=== PATIENT | female | born 1935 | race Caucasian/White ===

== ENCOUNTER 2017-06-06 09:32 | Emergency (ER) | payer MEDICARE, OTHER ==
[~2017-06-06] VITALS: Ht 157.5 cm; Wt 68.0 kg
[~2017-06-06 09:32] MED LIST: AMLO5 PO; ASPI-516 PO; ASPI81TA23 PO; CELE20TA PO; CITA20TA4 PO; COLA100C3 PO; COZA50TA PO; DIVA250ER PO; DIVA250T PO; DIVA500T PO; HYDR-3516 PO; LIPI10TA PO; LOSA50TA PO; MEMA28CA PO; METO-309 PO; METO25TA3 PO; MILKSUS PO; PANT20 PO; QUET1TAB9 PO; RISP1TAB54 PO; ROSU1TAB4 PO; TAMO10TA6 PO; TAMO20TA6 PO; TRAZ100T4 PO; TRAZ50TA12 PO; VITATAB56 PO
[2017-06-06 09:34] VITALS: BP 137/75; PULSE 54; RESP 20; TEMP 98.9; O2SAT 96
--- NOTE | 2017-06-06 10:05 | PD ---
HPI Chief Complaint: Medication Refill Request Time Seen by Provider: 09:48 Travel History International Travel<30 days: No Contact w/Intl Traveler<30days: No Traveled to known affect area: No History of Present Illness HPI 82-year-old female presents to emergency department accompanied by her son Requesting refills on Ativan, Seroquel, Depakote, tamoxifen, Celexa, Risperdal. She History of dementia, psychosis, anxiety, bipolar disorder, hypertension, HLD , GERD, breast cancer, frequent Yousif act. He says he has enough medications to get her through the end of the month. She currently has Medicaid insurance that ends June 10 and insurance that starts on June 11. She came from an [facility] on May 14 to live with him. She does not have an established primary care provider in this area. He is concerned that her medications are going to run out before they get established. There are no current emergency medical complaints. No known allergies. Complaints are mild in severity. No known relieving or aggravating factors. No other modifying factors or associated signs and symptoms. PFSH Past Medical History Blood Disorders: No Bipolar Disorder: Yes Anxiety: No Depression: Yes (bi-polar and schizoaffective disorders) Heart Rhythm Problems: No High Cholesterol: No Chest Pain: No Congestive Heart Failure: No Diminished Hearing: No Endocrine: No Gastrointestinal Disorders: Yes (GERD) GERD: Yes Genitourinary: No Hiatal Hernia: No Hypertension: Yes Immune Disorder: No Musculoskeletal: No Neurologic: Yes (dementia) Psychiatric: Yes (per son pt has been seeing a psychiatrist for many years) Reproductive: No Respiratory: No Schizophrenia: Yes Ulcer: No ?: Not Menopausal: Yes : 1 Para: 1 Miscarriage: 0 : 0 Past Surgical History Abdominal Surgery: Yes Cardiac Surgery: No Ear Surgery: No Endocrine Surgery: No Eye Surgery: No Genitourinary Surgery: No Gynecologic Surgery: No Mastectomy: Yes (LUMPECTOMY) Oral Surgery: No Thoracic Surgery: No Other Surgery: Yes (lumpectomy) Social History Alcohol Use: No Tobacco Use: No Substance Use: No Allergies-Medications (Allergen,Severity, Reaction): Coded Allergies: No Known Allergies (Unverified Adverse Reaction, Unknown, 06/06/17) Per information received from son and received from [facility], Psychiatry. Reported Meds & Prescriptions Reported Meds & Active Scripts Active Trazodone (Trazodone HCl) 100 Mg Tab 100 Mg PO HS Tamoxifen (Tamoxifen Citrate) 10 Mg Tab 20 Mg PO 2 DAILY Risperdal M-Tab (Risperidone) 1 Mg Tab 1 Mg PO DAILY@,16 Quetiapine (Quetiapine Fumarate) 200 Mg Tab 200 Mg PO HS Protonix (Pantoprazole Sodium) 20 Mg Tab 20 Mg PO DAILY Lopressor (Metoprolol Tartrate) 50 Mg Tab 50 Mg PO BID Cozaar (Losartan Potassium) 50 Mg Tab 50 Mg PO DAILY Depakote ER (Divalproex Sodium) 250 Mg Tennille 250 Mg PO HS Divalproex DR (Divalproex Sodium) 500 Mg Tabdr 500 Mg PO BID Celexa (Citalopram Hydrobromide) 20 Mg Tab 20 Mg PO DAILY Lipitor (Atorvastatin Calcium) 10 Mg Tab 10 Mg PO DAILY Aspirin EC (Aspirin) 81 Mg Tabdr 81 Mg PO DAILY Norvasc (Amlodipine Besylate) 5 Mg Tab 5 Mg PO BID Reported Trazodone (Trazodone HCl) 100 Mg Tab 100 Mg PO HS Losartan (Losartan Potassium) 50 Mg Tab 50 Mg PO DAILY Vitamin D-400 (Cholecalciferol) 400 Unit Tab 400 Units PO DAILY Metoprolol Tartrate 25 Mg Tab 25 Mg PO BID Trazodone (Trazodone HCl) 50 Mg Tab 50 Mg PO HS Divalproex DR (Divalproex Sodium) 250 Mg Tabdr 250 Mg PO BID Citalopram (Citalopram Hydrobromide) 20 Mg Tab 20 Mg PO DAILY Trazodone (Trazodone HCl) 100 Mg Tab 100 Mg PO HS Hydrocodone-Acetaminophen 5-325 mg Tab 1 Tab PO Q6H PRN Namenda Xr (Memantine) 28 Mg Caper 28 Mg PO HS Tamoxifen (Tamoxifen Citrate) 20 Mg Tab 20 Mg PO DAILY Rosuvastatin (Rosuvastatin Calcium) 5 Mg Tab 5 Mg PO DAILY Milk of Magnesia Liq (Magnesium Hydroxide) 400 Mg/5 Ml Susp 30 Ml PO DAILY PRN Colace (Docusate Sodium) 100 Mg Cap 100 Mg PO DAILY Aspirin 81 Mg Chew 81 Mg PO DAILY Protonix (Pantoprazole Sodium) 20 Mg Tab 20 Mg PO DAILY Review of Systems Except as stated in HPI: all other systems reviewed are Neg Physical Exam Narrative GENERAL: Well-nourished, well-developed female patient, in no acute distress SKIN: Warm and dry. HEAD: Atraumatic. Normocephalic. EYES: Pupils equal and round. No scleral icterus. No injection or drainage. ENT: Mucosa pink and moist. Airway patent. NECK: Trachea midline. CARDIOVASCULAR: Regular rate. RESPIRATORY: No accessory muscle use. GASTROINTESTINAL: Obese. MUSCULOSKELETAL: No obvious deformities. No clubbing. No cyanosis. No edema. NEUROLOGICAL: Awake and alert. Oriented 3. No obvious cranial nerve deficits. Motor grossly within normal limits. Normal speech. PSYCHIATRIC: Appropriate mood and affect; insight and judgment normal. Data Data Last Documented VS Vital Signs Date Time Temp Pulse Resp B/P (MAP) Pulse Ox O2 Delivery O2 Flow Rate FiO2 06/06/17 10:21 06/06/17 09:34 98.9 54 20 96 Room Air Orders Orders Ed Discharge Order (06/06/17 10:12) MDM Medical Decision Making Medical Screen Exam Complete: Yes Emergency Medical Condition: Yes Medical Record Reviewed: Yes ( ) Differential Diagnosis Medication refill, medical clearance, dementia, bipolar disorder Narrative Course 82-year-old female presents with her son requesting medication refills on psychotropic medications. Patient currently still has medications for the next few days. I offered for the patient to be seen by psychiatry and the son declined. I called [facility] and they stated they patient could be seen tomorrow, but they only have same day appointments and the son needs to call tomorrow at 8 AM to make an appointment. [facility] information sheet was provided to the sun and was told to call tomorrow morning at 8 AM for an appointment. Instructed patient to follow up with primary care provider. Patient verbalizes understanding and agreement with treatment plan. Patient is medically cleared and stable for discharge. Discussed reasons to return to the emergency department. Patient agrees with treatment plan. The patients vital signs are stable and the patient is stable for outpatient follow-up and treatment. Patient discharged home, stable and in no acute distress. Diagnosis Primary Impression: Medication refill Referrals: Primary Care Physician Psychiatrist Patient Instructions: General Instructions, Medication Refill, ED Additional Instructions: Follow-up with [facility]; call at 8am 06/07/2017 to schedule an appointment Follow-up with Primary Care Follow-up with Psychiatry Return to the Emergency Department with worsening of symptoms Med/Other Pt SpecificInfo: No Change to Meds, No Meds Exist/No RX given Disposition: 01 DISCHARGE HOME Condition: Stable Damari Gavin Jun 06, 2017 10:05
== END 2017-06-06 10:22 | disposition home or self-care (01) ==
LOC: NEPD 09:32
DX: F31.9 Bipolar disorder, unspecified (principal); F20.9 Schizophrenia, unspecified; F03.90 Unspecified dementia, unspecified severity, without behavioral disturbance, psychotic disturbance, mood disturbance, and anxiety; K21.9 Gastro-esophageal reflux disease without esophagitis; I10 Essential (primary) hypertension; E78.5 Hyperlipidemia, unspecified; Z76.0 Encounter for issue of repeat prescription
CPT/HCPCS: 99281

== ENCOUNTER 2017-06-07 10:21 | Inpatient (IN) | payer MEDICARE, OTHER ==
[~2017-06-07] VITALS: Ht 154.9 cm; Wt 75.4 kg
--- NOTE | 2017-06-07 10:41 | PD ---
HPI Chief Complaint: Psychiatric Symptoms Time Seen by Provider: 10:30 Travel History International Travel<30 days: No Contact w/Intl Traveler<30days: No Traveled to known affect area: No History of Present Illness HPI 82-year-old female presents from [facility] under Yousif act. According to law enforcement report the patient has "Alzheimer's, bipolar. Has supervised residential care because she is unable to do it herself. Told career developer she would harm herself if the supervisor receiving and processing did not take her to see her son." Her son has power of traffic law attorney. I saw this patient yesterday who was brought in by her son for medication refills on Ativan, Seroquel, Depakote, tamoxifen, Celexa, Risperdal. The patient has history of dementia, psychosis, anxiety, bipolar disorder. Patient is concerned that her , who is , is going to take her son to [place]. She denies making a statement that she wanted to harm herself. when asked if she has any medical complaints she says she "feels good." She is tearful and crying and continuing to say she wants her son. Duration of symptoms a few hours. No known relieving or aggravating factors. Does not have an established primary care provider. No known allergies. No other Modifying factors or associated signs and symptoms. PFSH Past Medical History Blood Disorders: No Bipolar Disorder: Yes Anxiety: No Depression: Yes (bi-polar and schizoaffective disorders) Heart Rhythm Problems: No High Cholesterol: Yes Chest Pain: No Congestive Heart Failure: No Dementia: Yes Diminished Hearing: No Endocrine: No Gastrointestinal Disorders: Yes (GERD) GERD: Yes Genitourinary: No Hiatal Hernia: No Hypertension: Yes Immune Disorder: No Musculoskeletal: No Neurologic: Yes Psychiatric: Yes (per son pt has been seeing a psychiatrist for many years) Reproductive: No Respiratory: No Immunizations Current: No Schizophrenia: Yes Ulcer: No Menopausal: Yes : 1 Para: 1 Miscarriage: 0 : 0 Past Surgical History Abdominal Surgery: Yes Cardiac Surgery: No Ear Surgery: No Endocrine Surgery: No Eye Surgery: No Genitourinary Surgery: No Gynecologic Surgery: No Mastectomy: Yes (LUMPECTOMY) Oral Surgery: No Thoracic Surgery: No Other Surgery: Yes (lumpectomy) Social History Alcohol Use: No Tobacco Use: No Substance Use: No Allergies-Medications (Allergen,Severity, Reaction): Coded Allergies: No Known Allergies (Unverified Adverse Reaction, Unknown, 06/06/17) Per information received from son and received from [facility], Psychiatry. Reported Meds & Prescriptions Reported Meds & Active Scripts Active Trazodone (Trazodone HCl) 100 Mg Tab 100 Mg PO HS Tamoxifen (Tamoxifen Citrate) 10 Mg Tab 20 Mg PO 2 DAILY Risperdal M-Tab (Risperidone) 1 Mg Tab 1 Mg PO DAILY@, Quetiapine (Quetiapine Fumarate) 200 Mg Tab 200 Mg PO HS Protonix (Pantoprazole Sodium) 20 Mg Tab 20 Mg PO DAILY Lopressor (Metoprolol Tartrate) 50 Mg Tab 50 Mg PO BID Cozaar (Losartan Potassium) 50 Mg Tab 50 Mg PO DAILY Depakote ER (Divalproex Sodium) 250 Mg Tennille 250 Mg PO HS Divalproex DR (Divalproex Sodium) 500 Mg Tabdr 500 Mg PO BID Celexa (Citalopram Hydrobromide) 20 Mg Tab 20 Mg PO DAILY Lipitor (Atorvastatin Calcium) 10 Mg Tab 10 Mg PO DAILY Aspirin EC (Aspirin) 81 Mg Tabdr 81 Mg PO DAILY Norvasc (Amlodipine Besylate) 5 Mg Tab 5 Mg PO BID Reported Trazodone (Trazodone HCl) 100 Mg Tab 100 Mg PO HS Losartan (Losartan Potassium) 50 Mg Tab 50 Mg PO DAILY Vitamin D-400 (Cholecalciferol) 400 Unit Tab 400 Units PO DAILY Metoprolol Tartrate 25 Mg Tab 25 Mg PO BID Trazodone (Trazodone HCl) 50 Mg Tab 50 Mg PO HS Divalproex DR (Divalproex Sodium) 250 Mg Tabdr 250 Mg PO BID Citalopram (Citalopram Hydrobromide) 20 Mg Tab 20 Mg PO DAILY Trazodone (Trazodone HCl) 100 Mg Tab 100 Mg PO HS Hydrocodone-Acetaminophen 5-325 mg Tab 1 Tab PO Q6H PRN Namenda Xr (Memantine) 28 Mg Caper 28 Mg PO HS Tamoxifen (Tamoxifen Citrate) 20 Mg Tab 20 Mg PO DAILY Rosuvastatin (Rosuvastatin Calcium) 5 Mg Tab 5 Mg PO DAILY Milk of Magnesia Liq (Magnesium Hydroxide) 400 Mg/5 Ml Susp 30 Ml PO DAILY PRN Colace (Docusate Sodium) 100 Mg Cap 100 Mg PO DAILY Aspirin 81 Mg Chew 81 Mg PO DAILY Protonix (Pantoprazole Sodium) 20 Mg Tab 20 Mg PO DAILY Review of Systems Except as stated in HPI: all other systems reviewed are Neg Physical Exam Narrative GENERAL: Well-nourished, well-developed female patient, in no acute distress; tearful and crying SKIN: Warm and dry. HEAD: Atraumatic. Normocephalic. EYES: Pupils equal and round. ENT: Mucosa pink and moist. NECK: Supple. Trachea midline. CARDIOVASCULAR: Regular rate and rhythm. No murmur appreciated. RESPIRATORY: No accessory muscle use. Clear to auscultation. Breath sounds equal bilaterally. GASTROINTESTINAL: Abdomen soft, non-tender, nondistended. Hepatic and splenic margins not palpable. Bowel sounds are active 4 quadrants. MUSCULOSKELETAL: No obvious deformities. No clubbing. No cyanosis. No edema. BACK: No CVA tenderness. NEUROLOGICAL: Awake and alert.. No obvious cranial nerve deficits. Motor grossly within normal limits. Normal speech. Moves all extremities. 5/5 strength to all extremities. PSYCHIATRIC: No delusional thought processes. No hallucinations. Data Data Last Documented VS Vital Signs Date Time Temp Pulse Resp B/P (MAP) Pulse Ox O2 Delivery O2 Flow Rate FiO2 06/07/17 11:00 56 18 117/78 (91) 96 Orders Orders Complete Blood Count With Diff (06/07/17 10:31) Comprehensive Metabolic Panel (06/07/17 10:31) Urinalysis - C+S If Indicated (06/07/17 10:31) Valproic Acid (Depakene) (06/07/17 10:31) Psych Screen (06/07/17 10:31) Drug Screen, Random Urine (06/07/17 10:31) Alcohol (Ethanol) (06/07/17 10:31) Salicylates (Aspirin) (06/07/17 10:31) Tylenol (Acetaminophen) (06/07/17 10:31) Labs Laboratory Tests Test 06/07/17 11:00 06/07/17 11:20 White Blood Count 8.9 TH/MM3 Red Blood Count 4.66 MIL/MM3 Hemoglobin 14.2 GM/DL Hematocrit 41.2 % Mean Corpuscular Volume 88.3 FL Mean Corpuscular Hemoglobin 30.5 PG Mean Corpuscular Hemoglobin Concent 34.5 % Red Cell Distribution Width 14.0 % Platelet Count 213 TH/MM3 Mean Platelet Volume 8.7 FL Neutrophils (%) (Auto) 79.5 % Lymphocytes (%) (Auto) 12.4 % Monocytes (%) (Auto) 6.3 % Eosinophils (%) (Auto) 1.1 % Basophils (%) (Auto) 0.7 % Neutrophils # (Auto) 7.1 TH/MM3 Lymphocytes # (Auto) 1.1 TH/MM3 Monocytes # (Auto) 0.6 TH/MM3 Eosinophils # (Auto) 0.1 TH/MM3 Basophils # (Auto) 0.1 TH/MM3 CBC Comment DIFF FINAL Differential Comment Blood Urea Nitrogen 18 MG/DL Creatinine 0.86 MG/DL Random Glucose 105 MG/DL Total Protein 7.9 GM/DL Albumin 4.0 GM/DL Calcium Level 8.8 MG/DL Alkaline Phosphatase 47 U/L Aspartate Amino Transf (AST/SGOT) 21 U/L Alanine Aminotransferase (ALT/SGPT) 24 U/L Total Bilirubin 0.5 MG/DL Sodium Level 139 MEQ/L Potassium Level 3.9 MEQ/L Chloride Level 103 MEQ/L Carbon Dioxide Level 25.3 MEQ/L Anion Gap 11 MEQ/L Estimat Glomerular Filtration Rate 63 ML/MIN Acetaminophen Level LESS THAN 2.0 MCG/ML Valproic Acid (Depakene) Level 71 MCG/ML Ethyl Alcohol Level LESS THAN 3 MG/DL Urine Color YELLOW Urine Turbidity HAZY Urine pH 6.0 Urine Specific [place] 1.013 Urine Protein TRACE mg/dL Urine Glucose (UA) NEG mg/dL Urine Ketones NEG mg/dL Urine Occult Blood NEG Urine Nitrite NEG Urine Bilirubin NEG Urine Urobilinogen LESS THAN 2.0 MG/DL Urine Leukocyte Esterase NEG Urine RBC LESS THAN 1 /hpf Urine WBC 2 /hpf Urine Squamous Epithelial Cells 9 /hpf Urine Bacteria OCC /hpf Urine Mucus FEW /lpf Microscopic Urinalysis Comment CULT NOT INDICATED Salicylates Level LESS THAN 1.7 MG/DL Urine Opiates Screen NEG Urine Barbiturates Screen NEG Urine Amphetamines Screen NEG Urine Benzodiazepines Screen NEG Urine Cocaine Screen NEG Urine Cannabinoids Screen NEG MDM Medical Decision Making Medical Screen Exam Complete: Yes Emergency Medical Condition: Yes Medical Record Reviewed: Yes Differential Diagnosis Medical clearance for psych evaluation, bipolar disorder, dementia, schizoaffective disorder Narrative Course Patient presents under a Yousif act. Physical examination and vital signs are essentially unremarkable. Patient has no medical complaints to report. Psych screen has been ordered. If the laboratory results are unremarkable, the patient will be medically cleared for psychiatric evaluation and disposition. Diagnosis Primary Impression: Medical clearance for psychiatric admission Condition: Stable Damari Gavin Jun 07, 2017 10:41
[2017-06-07 11:00] VITALS: BP 117/78; PULSE 56; RESP 18; O2SAT 96
[2017-06-07 11:44] LABS: AUTOMATED NEUTROPHIL # 7.1 TH/MM3 (1.8-7.7); BASOPHIL # 0.1 TH/MM3 (0-0.2); BASOPHIL % 0.7 % (0.0-2.0); EOSINOPHIL # 0.1 TH/MM3 (0-0.4); EOSINOPHIL % 1.1 % (0.0-4.0); HEMATOCRIT 41.2 % (35.0-46.0); HEMOGLOBIN 14.2 GM/DL (11.6-15.3); LYMPH % 12.4 % (9.0-44.0); LYMPHOCYTE # 1.1 TH/MM3 (1.0-4.8); MEAN CELL VOLUME 88.3 FL (80.0-100.0); MEAN CORPUSCULAR HEMOGLOBIN 30.5 PG (27.0-34.0); MEAN CORPUSCULAR HGB CONC 34.5 % (32.0-36.0); MEAN PLATELET VOLUME 8.7 FL (7.0-11.0); MONO % 6.3 % (0.0-8.0); MONOCYTE # 0.6 TH/MM3 (0-0.9); NEUT % 79.5 % (16.0-70.0); PLATELET COUNT 213 TH/MM3 (150-450); RED BLOOD COUNT 4.66 MIL/MM3 (4.00-5.30); WHITE BLOOD COUNT 8.9 TH/MM3 (4.0-11.0)
[2017-06-07 11:47] LABS: BACTERIA, URINE OCC /hpf; BILIRUBIN, URINE NEG (NEG); BLOOD, URINE NEG (NEG); GLUCOSE,URINE NEG (NEG); KETONE, URINE NEG (NEG); MUCUS URINE FEW /lpf (OCC); NITRITE,URINE NEG (NEG); SQUAMOUS EPITHELIAL CELL URINE 9 /hpf (0-5); URINE COLOR YELLOW (YELLW/STRAW); URINE LEUKOCYTE ESTERASE NEG (NEG)
[2017-06-07 11:57] LABS: ALKALINE PHOSPHATASE 47 U/L (45-117); TOTAL BILIRUBIN ADULT 0.5 MG/DL (0.2-1.0); TOTAL PROTEIN 7.9 GM/DL (6.4-8.2)
[2017-06-07 12:03] LABS: ALT (GPT) 24 U/L (10-53); AST (GOT) 21 U/L (15-37); BICARBONATE 25.3 MEQ/L (21.0-32.0); BLOOD UREA NITROGEN 18 MG/DL (7-18); CALCIUM 8.8 MG/DL (8.5-10.1); CHLORIDE 103 MEQ/L (98-107); CREATININE 0.86 MG/DL (0.50-1.00); GLOMERULAR FILTRATION RATE 63 ML/MIN (>89); GLUCOSE,RANDOM 105 MG/DL (74-106); SODIUM (NA) 139 MEQ/L (136-145)
[2017-06-07 12:04] LABS: ACETAMINOPHEN LESS THAN 2.0 MCG/ML (10.0-30.0)
[2017-06-07 13:26] VITALS: BP 121/74; PULSE 60; RESP 18; O2SAT 98
[2017-06-07 13:45] VITALS: BP 121/74
[2017-06-07] MEDS ORDERED: ALUMINUM/MAGNESIUM/SIMETH 30 ML CUP PO PRN (14:15)
[2017-06-07] MEDS ORDERED: LORazepam 2 MG/ML VIAL IM PRN (14:15)
--- NOTE | 2017-06-07 14:34 | HHI.HP ---
Provisional Diagnosis Admission Date Jun 07, 2017 at 14:02 [place] I. Schizophrenia Certification of Person's Competence To Provide Express and Informed Consent I have personally examined Karla Stroud , a person being served at [facility] on, Jun 07, 2017 14:10. Express and informed consent means consent voluntarily given in writing, by a competent person, after sufficient explanation and disclosure of the subject matter involved to enable the person to make a knowing and willful decision without any element of force, fraud, deceit, duress, or other form of constraint or coercion. This person is 18 years of age or older, is not now known to be incompetent to consent to treatment with a guardian advocate, and does not have a health care surrogate or proxy currently making medical treatment decisions. I have found this person to be one of the following: [] Competent to provide express and informed consent, as defined above, for voluntary admission to this facility and is competent to provide express and informed consent for treatment. He/she has the consistent capacity to make well reasoned, willful, and knowing decisions concerning his or her medical or mental health treatment. The person fully and consistently understands the purpose of the admission for examination/placement and is fully capable of personally exercising all rights assured [place] [x] Incompetent to provide express and informed consent to voluntary admission, and this is incompetent to provide express and informed consent to treatment. The person must be transferred to involuntary status and a petition for a guardian advocate filed with the Circuit Court. [] Refusing to provide express and informed consent to voluntary admission but is competent to provide express and informed consent for treatment. The person must be discharged or transferred to involuntary status. Form shall be completed within 24 hours of a person's arrival at the receiving facility and filed in the clinical record of each person: 1. Admitted on a voluntary basis 2. Permitted to provide express and informed consent to his/her own treatment 3. Allowed to transfer from involuntary to voluntary status 4. Prior to permitting a person to consent to his or her own treatment after having been previously found incompetent to consent to treatment. History of Present Illness Capacity: Lacks Capacity HPI 82-year-old female brought in under a Yousif act with law enforcement history of reported Alzheimer's and bipolar disorder. According to the Yousif act, the patient is unable to care for herself and told her professional sports scout that she would harm herself if the professional sports scout did not help her to see her son. Patient is a poor historian with obvious delusional thinking, labile affect, impulsive behavior, delusional thinking, etc. According to the witness statement, the patient became agitated this morning, looking for her son and her , the latter of which is . She told the witness she had to go home to her house because her son and were leaving for [place]. The patient could not be calmed down. At 5:30 AM, the patient left the front door shouting her son's name and screaming to take her home. The patient began crying and using inappropriate language. The son could not be contacted by telephone. She left her residence again at 8:30 AM and when the son call back, he instructed the professional sports scout to call the police. At this time, the patient remains highly agitated, delusional that her is alive, delusional that her and son are going to [place], at times tearful and suicidal, etc. She is disoriented and confused. Review of Systems Psychiatric: COMPLAINS OF: Confusion, Suicidal Ideation, Delusions Except as stated in HPI: all other systems reviewed are Neg Past Psych History Psychological trauma history Unknown. Patient poor historian. Violence risk - others (6 mos) Moderate. Patient easily agitated. Violence risk - self (6 mos) High. Patient making threats to harm herself. Substance Abuse History Drugs/Alcohol past 12 months Denied. Past Family Social History Coded Allergies: No Known Allergies (Unverified Allergy, Unknown, 06/07/17) Per information received from son and received from [facility]. Active Scripts Trazodone (Trazodone) 100 Mg Tab, 100 MG PO HS for health, #30 TAB 0 Refills Prov:Elmo Castañeda MD 04/10/16 Tamoxifen (Tamoxifen) 10 Mg Tab, 20 MG PO 2 daily for health, #60 TAB 0 Refills Prov:Elmo Castañeda MD 04/10/16 Risperidone Odt (Risperdal M-Tab) 1 Mg Tab, 1 MG PO DAILY@,16 for health, #30 TAB 0 Refills Prov:Elmo Castañeda MD 04/10/16 Quetiapine (Quetiapine) 200 Mg Tab, 200 MG PO HS for health, #30 TAB 0 Refills Prov:Elmo Castañeda MD 04/10/16 Pantoprazole (Protonix) 20 Mg Tab, 20 MG PO DAILY for health, #30 TAB 0 Refills Prov:Elmo Castañeda MD 04/10/16 Metoprolol Tartrate (Lopressor) 50 Mg Tab, 50 MG PO BID for health, #60 TAB 0 Refills Prov:Elmo Castañeda MD 04/10/16 Losartan (Cozaar) 50 Mg Tab, 50 MG PO DAILY for health, #30 TAB 0 Refills Prov:Elmo Castañeda MD 04/10/16 Divalproex ER (Depakote ER) 250 Mg Tennille, 250 MG PO HS for health, #30 TAB 0 Refills Prov:Elmo Castañeda MD 04/10/[address] (Divalproex DR) 500 Mg Tabdr, 500 MG PO BID for health, #60 TAB Prov:Elmo Castañeda MD 04/10/16 Citalopram (Celexa) 20 Mg Tab, 20 MG PO DAILY for health, #30 TAB 0 Refills Prov:Elmo Castañeda MD 04/10/16 Atorvastatin (Lipitor) 10 Mg Tab, 10 MG PO DAILY for health, #30 TAB 0 Refills Prov:Elmo Castañeda MD 04/10/[address] (Aspirin EC) 81 Mg Tabdr, 81 MG PO DAILY for health, #30 TAB 0 Refills Prov:Elmo Castañeda MD 04/10/16 Amlodipine (Norvasc) 5 Mg Tab, 5 MG PO BID for health, #60 TAB 0 Refills Prov:Elmo Castañeda MD 04/10/16 Reported Medications Trazodone (Trazodone) 100 Mg Tab, 100 MG PO HS for Control Depression, #30 TAB 0 Refills 04/09/16 Losartan (Losartan) 50 Mg Tab, 50 MG PO DAILY for Blood Pressure Management, # 30 TAB 0 Refills 04/09/16 Cholecalciferol (Vitamin D-400) 400 Unit Tab, 400 UNITS PO DAILY for Nutritional Supplement, #1 BOTTLE 0 Refills 04/09/16 Metoprolol Tartrate (Metoprolol Tartrate) 25 Mg Tab, 25 MG PO BID, #60 TAB 0 Refills 04/09/16 Trazodone (Trazodone) 50 Mg Tab, 50 MG PO HS for Control Depression, #30 TAB 0 Refills 04/09/[address] (Divalproex DR) 250 Mg Tabdr, 250 MG PO BID for Control Seizures, #60 TAB 0 Refills 04/09/16 Citalopram (Citalopram) 20 Mg Tab, 20 MG PO DAILY for Control Depression, #30 TAB 0 Refills 04/09/16 Trazodone (Trazodone) 100 Mg Tab, 100 MG PO HS for Control Depression, #30 TAB 0 Refills 16 Hydrocodone-Acetaminophen (Hydrocodone-Acetaminophen) 5-325 mg Tab, 1 TAB PO Q6H Y for PAIN, TAB 0 Refills 04/09/16 Memantine Er (Namenda Xr) 28 Mg Caper, 28 MG PO HS for Alzheimer Disease, #30 CAP 0 Refills 04/09/16 Tamoxifen (Tamoxifen) 20 Mg Tab, 20 MG PO DAILY for Chemotherapy Management, # 60 TAB 0 Refills 04/09/16 Rosuvastatin (Rosuvastatin) 5 Mg Tab, 5 MG PO DAILY for Cholesterol Management, #30 TAB 0 Refills 16 Magnesium Hydroxide Liq (Milk of Magnesia Liq) 400 Mg/5 Ml Susp, 30 ML PO DAILY Y for INDIGESTION OR UPSET STOMACH, #1 BOTTLE 0 Refills 04/09/16 Docusate Sodium (Colace) 100 Mg Cap, 100 MG PO DAILY for Constipation, #60 CAP 0 Refills 04/09/16 Aspirin (Aspirin) 81 Mg Chew, 81 MG PO DAILY, TAB 0 Refills 04/09/16 Pantoprazole (Protonix) 20 Mg Tab, 20 MG PO DAILY for Reflux, #30 TAB 0 Refills 04/09/16 Current Medications Medications (Trade) Dose Ordered Sig/Diane Route Start Time Stop Time Status Last Admin (Ativan) 1 mg Q6H PRN PO 06/07/17 14:15 UNV (Ativan Inj) 1 mg Q6H PRN IM 06/07/17 14:15 UNV (Tylenol) 650 mg Q4H PRN PO 06/07/17 14:15 UNV (Milk Of Magnesia Liq) 30 ml DAILY PRN PO 06/07/17 14:15 UNV (Mag-Al Plus Susp Liq) 30 ml Q6H PRN PO 06/07/17 14:15 UNV Family Psych History Unknown. Patient poor historian. Social History Patient is from [place]. Her son is her power of sap bpc architect. She is unemployed and disabled from the ability to work. 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 Son brought her to the hospital yesterday for medication refills, which includes several psychotropic medicines including at least 2 antipsychotics. No history of alcohol or substance abuse. Patient's Strengths (min. 2) Supportive son and has access to healthcare. Physical Exam GENERAL: SKIN: Warm and dry. HEAD: Normocephalic. EYES: No scleral icterus. No injection or drainage. NECK: Supple, trachea midline. No JVD or lymphadenopathy. CARDIOVASCULAR: Regular rate and rhythm without murmurs, gallops, or rubs. RESPIRATORY: Breath sounds equal bilaterally. No accessory muscle use. GASTROINTESTINAL: Abdomen soft, non-tender, nondistended. MUSCULOSKELETAL: No cyanosis, or edema. BACK: Nontender without obvious deformity. No CVA tenderness. Vital Signs Vital Signs Date Time Temp Pulse Resp B/P (MAP) Pulse Ox O2 Delivery O2 Flow Rate FiO2 06/07/17 13:45 60 18 121/74 (90) 99 06/07/17 13:26 Room Air Lab Results Test 06/07/17 11:00 06/07/17 11:20 White Blood Count 8.9 TH/MM3 Red Blood Count 4.66 MIL/MM3 Hemoglobin 14.2 GM/DL Hematocrit 41.2 % Mean Corpuscular Volume 88.3 FL Mean Corpuscular Hemoglobin 30.5 PG Mean Corpuscular Hemoglobin Concent 34.5 % Red Cell Distribution Width 14.0 % Platelet Count 213 TH/MM3 Mean Platelet Volume 8.7 FL Neutrophils (%) (Auto) 79.5 % Lymphocytes (%) (Auto) 12.4 % Monocytes (%) (Auto) 6.3 % Eosinophils (%) (Auto) 1.1 % Basophils (%) (Auto) 0.7 % Neutrophils # (Auto) 7.1 TH/MM3 Lymphocytes # (Auto) 1.1 TH/MM3 Monocytes # (Auto) 0.6 TH/MM3 Eosinophils # (Auto) 0.1 TH/MM3 Basophils # (Auto) 0.1 TH/MM3 CBC Comment DIFF FINAL Differential Comment Blood Urea Nitrogen 18 MG/DL Creatinine 0.86 MG/DL Random Glucose 105 MG/DL Total Protein 7.9 GM/DL Albumin 4.0 GM/DL Calcium Level 8.8 MG/DL Alkaline Phosphatase 47 U/L Aspartate Amino Transf (AST/SGOT) 21 U/L Alanine Aminotransferase (ALT/SGPT) 24 U/L Total Bilirubin 0.5 MG/DL Sodium Level 139 MEQ/L Potassium Level 3.9 MEQ/L Chloride Level 103 MEQ/L Carbon Dioxide Level 25.3 MEQ/L Anion Gap 11 MEQ/L Estimat Glomerular Filtration Rate 63 ML/MIN Acetaminophen Level LESS THAN 2.0 MCG/ML Valproic Acid (Depakene) Level 71 MCG/ML Ethyl Alcohol Level LESS THAN 3 MG/DL Urine Color YELLOW Urine Turbidity HAZY Urine pH 6.0 Urine Specific [place] 1.013 Urine Protein TRACE mg/dL Urine Glucose (UA) NEG mg/dL Urine Ketones NEG mg/dL Urine Occult Blood NEG Urine Nitrite NEG Urine Bilirubin NEG Urine Urobilinogen LESS THAN 2.0 MG/DL Urine Leukocyte Esterase NEG Urine RBC LESS THAN 1 /hpf Urine WBC 2 /hpf Urine Squamous Epithelial Cells 9 /hpf Urine Bacteria OCC /hpf Urine Mucus FEW /lpf Microscopic Urinalysis Comment CULT NOT INDICATED Salicylates Level LESS THAN 1.7 MG/DL Urine Opiates Screen NEG Urine Barbiturates Screen NEG Urine Amphetamines Screen NEG Urine Benzodiazepines Screen NEG Urine Cocaine Screen NEG Urine Cannabinoids Screen NEG Mental Status Examination Appearance: Appropriate Consciousness: Alert Orientation: Person Motor Activity: Normal gait Speech: Hesitant Language: Perseveration Fund of Knowledge: Inadequate Attention and Concentration: Easily Distracted Memory: Impaired Mood: Anxious Affect: Labile Thought Process & Associations: Loose associations, Circumstantial, Disorganized, Tangential Thought Content: Bizarre thinking, Delusional Hallucination Type: None Delusion Type: Paranoid Suicidal Ideation: Yes Suicidal Plan: No Suicidal Intention: No Homicidal Ideation: No Homicidal Plan: No Homicidal Intention: No Insight: Poor Judgment: Poor Assessment & Plan Problem List: (1) Schizophrenia, paranoid type ICD Codes: F20.0 - Paranoid schizophrenia (2) Dementia in other diseases classified elsewhere with behavioral disturbance ICD Codes: F02.81 - Dementia in other diseases classified elsewhere with behavioral disturbance Assessment & Plan Estimated LOS: days. 82 year-old female brought in during a Yousif act for confused and psychotic thinking as well as suicidal threats. Patient has a history of mental illness which has been described as seriously as schizophrenia , bipolar disorder, etc. She also appears to have ongoing cognitive deficits which appear to be the result of dementia and contribute to her behavioral problem. Patient is obviously unable to care for herself at this time, leaving her home repeatedly as a result of delusional thinking, becoming extremely agitated and threatening to harm herself. For these reasons she is being admitted for further evaluation and treatment. This physician has ordered a hep us consult as the patient has a history of multiple medical issues which may be contributing to her state of confusion and suicidal threats. This physician has also ordered a CBC and comprehensive metabolic panel to determine if any infectious process or metabolic processes causing or contributing to her confusion and delusions. Also ordered as a lipid panel, and hemoglobin A1c as the patient has been treated with multiple psychotropic medicines which increase the likelihood of her developing a cholesterol problem or diabetes. Patient is not felt to be competent and so civil commitment procedures with guardian advocate were initiated. This physician has ordered a EKG to determine the patient's cardiac conduction status , which can also be adversely affected by the multiple psychotropic medicines she is currently prescribed. Finally, this physician spoke with the patient's nurse, Mirlande, regarding her recent behavior. Case management will also be involved to assist with information gathering and disposition planning. Santo Molina MD Jun 07, 2017 14:33
[2017-06-07] MEDS: risperiDONE ODT 1 MG TAB PO SCH (16:00)
[2017-06-07 16:49] VITALS: BP 167/85; PULSE 60; RESP 18; TEMP 97.8; O2SAT 97
[2017-06-07] MEDS: ACETAMINOPHEN 325 MG TAB PO PRN (18:09)
--- NOTE | 2017-06-07 18:51 | PD.CONS ---
HPI Service [facility] Hospitalists Consult Requested By Dr Molina Reason for Consult Management of medical issues. Primary Care Physician No Primary Care Physician Diagnoses: History of Present Illness This is a 82-year-old female with extensive past medical history as he took below. The patient was brought in to [facility] under [place] act with law enforcement. According to the Yousif act the patient is unable to care for herself and told her line pilot that she would harm herself if line pilot did not help her to see her son. As per psychiatrist note according to witness statement the patient became agitated this morning, looking for son and her , the latter of which is . She told her with this she had to go home to her house because her son and were leaving for [place]. The patient was very agitated and could not be calmed down. At 5:30 AM, the patient left the frontal showed her son's name and screaming to take her home. As per report the patient then began crying and using inappropriate language. The patient is more calm during my interview. Patient c/o cough which she says started last night, which is non productive. Denies fevers or chills. Denies abdominal pain, nausea or vomiting. Review of Systems As per history of present illness, other systems reviewed by me and negative. Past Family Social History Allergies: Coded Allergies: No Known Allergies (Unverified Allergy, Unknown, 06/07/17) Per information received from son and received from [facility]. Past Medical History Dementia Bipolar disorder Left distal radius fracture 11/23/2015 - nonoperative management per Dr. Bennett Right foot second, third, and fourth metatarsal fractures 11/13/2015 - nonoperative management per Dr. Bennett Hypertension Hyperlipidemia Gastroesophageal reflux disease History of breast cancer status post lumpectomy Past Surgical History Breast lumpectomy Prior abdominal surgery, not specified. Reported Medications Reported Meds & Active Scripts Active Trazodone (Trazodone HCl) 100 Mg Tab 100 Mg PO HS Tamoxifen (Tamoxifen Citrate) 10 Mg Tab 20 Mg PO 2 DAILY Risperdal M-Tab (Risperidone) 1 Mg Tab 1 Mg PO DAILY@09,16 Quetiapine (Quetiapine Fumarate) 200 Mg Tab 200 Mg PO HS Protonix (Pantoprazole Sodium) 20 Mg Tab 20 Mg PO DAILY Lopressor (Metoprolol Tartrate) 50 Mg Tab 50 Mg PO BID Cozaar (Losartan Potassium) 50 Mg Tab 50 Mg PO DAILY Depakote ER (Divalproex Sodium) 250 Mg Tennille 250 Mg PO HS Divalproex DR (Divalproex Sodium) 500 Mg Tabdr 500 Mg PO BID Celexa (Citalopram Hydrobromide) 20 Mg Tab 20 Mg PO DAILY Lipitor (Atorvastatin Calcium) 10 Mg Tab 10 Mg PO DAILY Aspirin EC (Aspirin) 81 Mg Tabdr 81 Mg PO DAILY Norvasc (Amlodipine Besylate) 5 Mg Tab 5 Mg PO BID Reported Trazodone (Trazodone HCl) 100 Mg Tab 100 Mg PO HS Losartan (Losartan Potassium) 50 Mg Tab 50 Mg PO DAILY Vitamin D-400 (Cholecalciferol) 400 Unit Tab 400 Units PO DAILY Metoprolol Tartrate 25 Mg Tab 25 Mg PO BID Trazodone (Trazodone HCl) 50 Mg Tab 50 Mg PO HS Divalproex DR (Divalproex Sodium) 250 Mg Tabdr 250 Mg PO BID Citalopram (Citalopram Hydrobromide) 20 Mg Tab 20 Mg PO DAILY Trazodone (Trazodone HCl) 100 Mg Tab 100 Mg PO HS Hydrocodone-Acetaminophen 5-325 mg Tab 1 Tab PO Q6H PRN Namenda Xr (Memantine) 28 Mg Caper 28 Mg PO HS Tamoxifen (Tamoxifen Citrate) 20 Mg Tab 20 Mg PO DAILY Rosuvastatin (Rosuvastatin Calcium) 5 Mg Tab 5 Mg PO DAILY Milk of Magnesia Liq (Magnesium Hydroxide) 400 Mg/5 Ml Susp 30 Ml PO DAILY PRN Colace (Docusate Sodium) 100 Mg Cap 100 Mg PO DAILY Aspirin 81 Mg Chew 81 Mg PO DAILY Protonix (Pantoprazole Sodium) 20 Mg Tab 20 Mg PO DAILY Active Ordered Medications Current Medications Medications (Trade) Dose Ordered Sig/Diane Route Start Time Stop Time Status Last Admin (Ativan) 1 mg Q6H PRN PO 06/07/17 14:15 (Ativan Inj) 1 mg Q6H PRN IM 06/07/17 14:15 (Tylenol) 650 mg Q4H PRN PO 06/07/17 14:15 06/07/17 18:09 (Milk Of Magnesia Liq) 30 ml DAILY PRN PO 06/07/17 14:15 (Mag-Al Plus Susp Liq) 30 ml Q6H PRN PO 06/07/17 14:15 (Norvasc) 5 mg BID PO 06/07/17 21:00 (Aspirin Chew) 81 mg DAILY PO 06/08/17 09:00 (Lipitor) 10 mg DAILY PO 06/08/17 09:00 (Depakote Dr) 250 mg BID PO 06/07/17 21:00 (Colace) 100 mg DAILY PO 06/08/17 09:00 (Cozaar) 50 mg DAILY PO 06/08/17 09:00 (Lopressor) 25 mg BID PO 06/07/17 21:00 (Protonix) 20 mg DAILY PO 06/08/17 09:00 (risperDAL M-TAB) 1 mg DAILY@09,16 PO 06/07/17 16:00 (Nolvadex) 20 mg DAILY PO 06/08/17 09:00 (Namenda) 10 mg BID PO 06/07/17 21:00 Family History Denies family history of CVA, CO, CVA. Reports she has a healthy son Social History Denies smoking, EtOH, no illicit drugs. Physical Exam Vital Signs Vital Signs Date Time Temp Pulse Resp B/P (MAP) Pulse Ox O2 Delivery O2 Flow Rate FiO2 06/07/17 16:49 97.8 60 18 167/85 (112) 97 06/07/17 15:10 06/07/17 13:45 60 18 121/74 (90) 99 06/07/17 13:26 60 18 121/74 (90) 98 Room Air 06/07/17 11:00 56 18 117/78 (91) 96 Physical Exam GENERAL: This is a well-nourished, well-developed patient, in no apparent distress. SKIN: No rashes, ecchymoses or lesions. Cool and dry. HEAD: Atraumatic. Normocephalic. No temporal or scalp tenderness. EYES: Pupils equal round and reactive. Extraocular motions intact. No scleral icterus. No injection or drainage. ENT: Nose without bleeding, purulent drainage or septal hematoma. Throat without erythema, tonsillar hypertrophy or exudate. Uvula midline. Airway patent. NECK: Trachea midline. No JVD or lymphadenopathy. Supple, nontender, no meningeal signs. CARDIOVASCULAR: Regular rate and rhythm without murmurs, gallops, or rubs. RESPIRATORY: Clear to auscultation. Breath sounds equal bilaterally. No wheezes , rales, or rhonchi. GASTROINTESTINAL: Abdomen soft, non-tender, nondistended. No hepato-splenomegaly , or palpable masses. No guarding. MUSCULOSKELETAL: Extremities without clubbing, cyanosis, or edema. No joint tenderness, effusion, or edema noted. No calf tenderness. Negative Homans sign bilaterally. NEUROLOGICAL: Awake and alert. Cranial nerves II through XII intact. Motor and sensory grossly within normal limits. Five out of 5 muscle strength in all muscle groups. Normal speech. Laboratory Laboratory Tests Test 06/07/17 11:00 06/07/17 11:20 White Blood Count 8.9 Red Blood Count 4.66 Hemoglobin 14.2 Hematocrit 41.2 Mean Corpuscular Volume 88.3 Mean Corpuscular Hemoglobin 30.5 Mean Corpuscular Hemoglobin Concent 34.5 Red Cell Distribution Width 14.0 Platelet Count 213 Mean Platelet Volume 8.7 Neutrophils (%) (Auto) 79.5 Lymphocytes (%) (Auto) 12.4 Monocytes (%) (Auto) 6.3 Eosinophils (%) (Auto) 1.1 Basophils (%) (Auto) 0.7 Neutrophils # (Auto) 7.1 Lymphocytes # (Auto) 1.1 Monocytes # (Auto) 0.6 Eosinophils # (Auto) 0.1 Basophils # (Auto) 0.1 CBC Comment DIFF FINAL Differential Comment Blood Urea Nitrogen 18 Creatinine 0.86 Random Glucose 105 Total Protein 7.9 Albumin 4.0 Calcium Level 8.8 Alkaline Phosphatase 47 Aspartate Amino Transf (AST/SGOT) 21 Alanine Aminotransferase (ALT/SGPT) 24 Total Bilirubin 0.5 Sodium Level 139 Potassium Level 3.9 Chloride Level 103 Carbon Dioxide Level 25.3 Anion Gap 11 Estimat Glomerular Filtration Rate 63 Acetaminophen Level LESS THAN 2.0 Valproic Acid (Depakene) Level 71 Ethyl Alcohol Level LESS THAN 3 Urine Color YELLOW Urine Turbidity HAZY Urine pH 6.0 Urine Specific [place] 1.013 Urine Protein TRACE Urine Glucose (UA) NEG Urine Ketones NEG Urine Occult Blood NEG Urine Nitrite NEG Urine Bilirubin NEG Urine Urobilinogen LESS THAN 2.0 Urine Leukocyte Esterase NEG Urine RBC LESS THAN 1 Urine WBC 2 Urine Squamous Epithelial Cells 9 Urine Bacteria OCC Urine Mucus FEW Microscopic Urinalysis Comment CULT NOT INDICATED Salicylates Level LESS THAN 1.7 Urine Opiates Screen NEG Urine Barbiturates Screen NEG Urine Amphetamines Screen NEG Urine Benzodiazepines Screen NEG Urine Cocaine Screen NEG Urine Cannabinoids Screen NEG Result Diagram: 06/07/17 1100 06/07/17 1100 Assessment and Plan Problem List: (1) Dementia ICD Code: F03.90 - Unspecified dementia without behavioral disturbance Status: Chronic (2) Schizophrenia, paranoid type ICD Code: F20.0 - Paranoid schizophrenia Status: Acute (3) Hypertension ICD Code: I10 - Essential (primary) hypertension Status: Chronic (4) Hyperlipidemia ICD Code: E78.5 - Hyperlipidemia, unspecified Status: Chronic (5) Bipolar disorder ICD Code: F31.9 - Bipolar disorder, unspecified Status: Chronic (6) History of breast cancer ICD Code: Z85.3 - Personal history of malignant neoplasm of breast Status: Resolved Assessment and Plan 1. Dementia/schizophrenia. Management as per psychiatry. The patient currently on Namenda and risperidone. Patient also has Ativan as needed for moderate to severe anxiety. 2. Hypertension. Blood pressure seems to be stable. Continue home antihypertensive medications which include amlodipine 5 mg by mouth twice a day, losartan 50 minutes by mouth daily, metoprolol tartrate 50 minutes by mouth twice a day. I will also order clonidine as needed for systolic blood pressure more than 160. 3. Hyperlipidemia. Continue statin. Fasting lipid profile shows triglycerides of 99, total cholesterol 129, LDL cholesterol 53 and HDL cholesterol 56.1. 4. History of breast cancer. Continue tamoxifen. 5. Cough Will order a CXR and Rx Robitussin DM as needed. Patient is afebrile. No leukocytosis or signs of infection. 5. DVT prophylaxis. Encourage ambulation. Vinay Weathers MD Jun 07, 2017 18:51
[2017-06-07] MEDS: MEMANTINE HCL 10 MG TAB PO SCH (21:00)
[2017-06-07] MEDS: DIVALPROEX SODIUM DELAYED RELEASE 250 MG TAB PO SCH (21:00)
[2017-06-07] MEDS ORDERED: METOPROLOL TARTRATE 25 MG TAB PO SCH (21:00)
[2017-06-07] MEDS: amLODIPine BESYLATE 5 MG TAB PO SCH (21:00)
[2017-06-07] MEDS: guaiFENesin/DEXTROMETHORPHAN 200 MG/20 MG/10 ML CUP PO PRN (21:12)
--- NOTE | 2017-06-07 22:44 | RADRPT ---
EXAM DATE/TIME: 06/07/2017 22:22 [facility] COMPARISON: CHEST PA & LAT, November 18, 2015, 11:41. INDICATIONS : Cough. MEDICAL HISTORY : Hypertension. Carcinoma, breast. Demenita. SURGICAL HISTORY : None. ENCOUNTER: Initial ACUITY: 1 day PAIN SCORE: 0/10 LOCATION: Bilateral chest FINDINGS: A single view of the chest demonstrates the lungs to be symmetrically aerated without evidence of mas s, infiltrate or effusion. The cardiomediastinal contours are unremarkable. Osseous structures are intact. CONCLUSION: No acute disease. Elmo Tobias MD on June 07, 2017 at 22:42 Board Certified Radiologist. This report was verified electronically.
[2017-06-08] MEDS: ACETAMINOPHEN 325 MG TAB PO PRN ×2 (00:03→18:02)
[2017-06-08 05:46] VITALS: BP 155/94; PULSE 78; RESP 17; TEMP 98.1; O2SAT 97
[2017-06-08] MEDS: TAMOXIFEN CITRATE 10 MG TAB PO SCH (09:00)
[2017-06-08] MEDS ORDERED: diphenhydrAMINE HCL 2%/ZINC ACETATE 0.1% CREAM 30 APPLIC/30 GM TUBE TOPICAL PRN (09:15)
[2017-06-08 10:03] LABS: AUTOMATED NEUTROPHIL # 6.3 TH/MM3 (1.8-7.7); BASOPHIL % 0.6 % (0.0-2.0); EOSINOPHIL # 0.3 TH/MM3 (0-0.4); HEMATOCRIT 39.5 % (35.0-46.0); HEMOGLOBIN 13.6 GM/DL (11.6-15.3); LYMPH % 11.5 % (9.0-44.0); LYMPHOCYTE # 0.9 TH/MM3 (1.0-4.8); MEAN CELL VOLUME 89.4 FL (80.0-100.0); MEAN CORPUSCULAR HEMOGLOBIN 30.8 PG (27.0-34.0); MEAN CORPUSCULAR HGB CONC 34.4 % (32.0-36.0); MEAN PLATELET VOLUME 8.6 FL (7.0-11.0); MONO % 5.9 % (0.0-8.0); MONOCYTE # 0.5 TH/MM3 (0-0.9); PLATELET COUNT 208 TH/MM3 (150-450); RED BLOOD COUNT 4.42 MIL/MM3 (4.00-5.30); RED CELL DISTRIBUTION WIDTH 13.6 % (11.6-17.2); WHITE BLOOD COUNT 8.1 TH/MM3 (4.0-11.0)
[2017-06-08 10:47] LABS: ALBUMIN 3.8 GM/DL (3.4-5.0); ALT (GPT) 22 U/L (10-53); AST (GOT) 21 U/L (15-37); BICARBONATE 27.3 MEQ/L (21.0-32.0); BLOOD UREA NITROGEN 16 MG/DL (7-18); CALCIUM 8.8 MG/DL (8.5-10.1); CHLORIDE 100 MEQ/L (98-107); CHOLESTEROL 115 MG/DL (120-200); GLOMERULAR FILTRATION RATE 60 ML/MIN (>89); GLUCOSE,RANDOM 176 MG/DL (74-106); SODIUM (NA) 137 MEQ/L (136-145); TRIGLYCERIDES 98 MG/DL (42-150)
[2017-06-08] MEDS: ASPIRIN 81 MG CHEW TAB PO SCH (11:17)
[2017-06-08] MEDS: DOCUSATE SODIUM 100 MG CAP PO SCH (11:18)
[2017-06-08] MEDS: amLODIPine BESYLATE 5 MG TAB PO SCH ×2 (11:18→21:55)
[2017-06-08] MEDS: PANTOPRAZOLE SOD 20 MG DELAYED RELEASE TAB PO SCH (11:18)
[2017-06-08] MEDS: MEMANTINE HCL 10 MG TAB PO SCH ×2 (11:18→21:55)
[2017-06-08] MEDS: DIVALPROEX SODIUM DELAYED RELEASE 250 MG TAB PO SCH ×2 (11:19→21:55)
[2017-06-08] MEDS: ATORVASTATIN 10 MG TAB PO SCH (11:19)
[2017-06-08] MEDS: LOSARTAN 50 MG TAB PO SCH (11:19)
[2017-06-08] MEDS: risperiDONE ODT 1 MG TAB PO SCH ×2 (11:19→15:49)
[2017-06-08 11:20] LABS: ALKALINE PHOSPHATASE 48 U/L (45-117); CHOLESTEROL/ HDL RATIO 2.21 RATIO; LDL CHOLESTEROL 43 MG/DL (0-99); TOTAL BILIRUBIN ADULT 0.5 MG/DL (0.2-1.0); TOTAL PROTEIN 7.7 GM/DL (6.4-8.2)
[2017-06-08] MEDS: METOPROLOL TARTRATE 50 MG TAB PO SCH ×2 (11:20→21:55)
--- NOTE | 2017-06-08 14:02 | HHI.PYPN ---
Subjective Remarks His patient initially admitted by Dr. Santo Molina he did the initial psychiatric H&P. I reviewed that and agree with it. I have done the initial psychiatric template admission orders. I reviewed the med reconciliation orders. At the present time patient laying quietly on her bed nurseL Baylee present throughout session. Patient alert somewhat diffusely confused though she did not this is [place], it's [place] [facility] [place]. She states her is still alive but she wants nothing to do with him. Patient did remember me from prior admissions. Patient is been compliant with the medication. Dr. Molina has done first opinion petition supporting Yosuif act. I agree. Patient meets criteria for involuntary psychiatric hospitalization under the Yousif act I will cosign second opinion petition supporting Yousif act Review of Systems Except as stated in HPI: all other systems reviewed are Neg Mental Status Examination Appearance: Appropriate Consciousness: Alert Orientation: Person Motor Activity: Normal gait Speech: Hesitant Language: Perseveration Fund of Knowledge: Inadequate Attention and Concentration: Easily Distracted Memory: Impaired Mood: Anxious Affect: Labile Thought Process & Associations: Loose associations, Circumstantial, Disorganized, Tangential Thought Content: Bizarre thinking, Delusional Hallucination Type: None Delusion Type: Paranoid Suicidal Ideation: Yes Suicidal Plan: No Suicidal Intention: No Homicidal Ideation: No Homicidal Plan: No Homicidal Intention: No Insight: Poor Judgment: Poor Results Labs Test 06/08/17 08:50 White Blood Count 8.1 TH/MM3 Red Blood Count 4.42 MIL/MM3 Hemoglobin 13.6 GM/DL Hematocrit 39.5 % Mean Corpuscular Volume 89.4 FL Mean Corpuscular Hemoglobin 30.8 PG Mean Corpuscular Hemoglobin Concent 34.4 % Red Cell Distribution Width 13.6 % Platelet Count 208 TH/MM3 Mean Platelet Volume 8.6 FL Neutrophils (%) (Auto) 78.0 % Lymphocytes (%) (Auto) 11.5 % Monocytes (%) (Auto) 5.9 % Eosinophils (%) (Auto) 4.0 % Basophils (%) (Auto) 0.6 % Neutrophils # (Auto) 6.3 TH/MM3 Lymphocytes # (Auto) 0.9 TH/MM3 Monocytes # (Auto) 0.5 TH/MM3 Eosinophils # (Auto) 0.3 TH/MM3 Basophils # (Auto) 0.0 TH/MM3 CBC Comment DIFF FINAL Differential Comment Blood Urea Nitrogen 16 MG/DL Creatinine 0.90 MG/DL Random Glucose 176 MG/DL Total Protein 7.7 GM/DL Albumin 3.8 GM/DL Calcium Level 8.8 MG/DL Alkaline Phosphatase 48 U/L Aspartate Amino Transf (AST/SGOT) 21 U/L Alanine Aminotransferase (ALT/SGPT) 22 U/L Total Bilirubin 0.5 MG/DL Sodium Level 137 MEQ/L Potassium Level 3.0 MEQ/L Chloride Level 100 MEQ/L Carbon Dioxide Level 27.3 MEQ/L Anion Gap 10 MEQ/L Estimat Glomerular Filtration Rate 60 ML/MIN Triglycerides Level 98 MG/DL Cholesterol Level 115 MG/DL LDL Cholesterol 43 MG/DL HDL Cholesterol 52.0 MG/DL Cholesterol/HDL Ratio 2.21 RATIO Vitamin B12 Level 793 PG/ML 25-Hydroxy Vitamin D Total 8.9 ng/ML Thyroid Stimulating Hormone 3rd Gen 1.880 uIU/ML Vitals/IOs Vital Signs Date Time Temp Pulse Resp B/P (MAP) Pulse Ox O2 Delivery O2 Flow Rate FiO2 06/08/17 05:46 98.1 78 17 155/94 (114) 97 06/07/17 13:26 Room Air Intake and Output 06/08/17 06/08/17 06/09/17 08:00 16:00 00:00 Intake Total 840 ml Balance 840 ml Assessment & Plan Problem List: (1) Schizophrenia, paranoid type ICD Codes: F20.0 - Paranoid schizophrenia Status: Acute (2) Dementia in other diseases classified elsewhere with behavioral disturbance ICD Codes: F02.81 - Dementia in other diseases classified elsewhere with behavioral disturbance Assessment & Plan Estimated LOS: days I have cosigned second opinion petition supporting Yousif act. We'll continue medication per the med reconciliation at this time. Patient continues somewhat confused demented and delusional Justification for Cont. Inpt. This time patient will decompensate if placed in the lower level of care Discharge Planning Need to determine if patient can return to her prior living situation Request HC Surrog/Guard Advoc?: Yes Elmo Castañeda MD Jun 08, 2017 14:02
--- NOTE | 2017-06-08 14:33 | EKG ---
Date Performed: 06/08/2017 Time Performed: 09:27:48 PTAGE: 82 years EKG: Sinus rhythm MARKED LEFT AXIS DEVIATION RIGHT BUNDLE BRANCH BLOCK POSSIBLE SEPTAL MYOCARDIAL INFARCTION , OF INDE TERMINATE AGE ABNORMAL ECG PREVIOUS TRACING : 03/13/2016 12.20 Since prior tracing, sinus rate is slower. DOCTOR: Avila Lunsford Interpretating Date/Time 06/08/2017 14:32:17
[2017-06-08 16:15] LABS: HEMOGLOBIN A1C 5.4 % (4.3-6.0)
--- NOTE | 2017-06-08 17:52 | HHI.PR ---
Subjective Remarks Deferred entry - patient seen at 9 am Patient states cough is better - states has some phlegm. Denies cp/sob. Afebrile. K low Objective Vitals Vital Signs Date Time Temp Pulse Resp B/P (MAP) Pulse Ox O2 Delivery O2 Flow Rate FiO2 06/08/17 05:46 98.1 78 17 155/94 (114) 97 I/O 06/07/17 06/07/17 06/07/17 06/08/17 06/08/17 06/08/17 07:00 15:00 23:00 07:00 15:00 23:00 Intake Total 840 ml 240 ml Balance 840 ml 240 ml Intake Oral 840 ml 240 ml Result Diagram: 06/08/17 0850 06/08/17 0850 Imaging Last Impressions Chest X-Ray 06/07/17 0000 Signed Impressions: Service Date/Time: May 22:22 - CONCLUSION: No acute disease. Elmo Tobias MD Objective Remarks AA NAD PERRLA Clear lungs BL Abdomen soft, nt, nd no edema in lower extremities. Medications and IVs Current Medications Medications (Trade) Dose Ordered Sig/Diane Route Start Time Stop Time Status Last Admin (Ativan) 1 mg Q6H PRN PO 06/07/17 14:15 (Ativan Inj) 1 mg Q6H PRN IM 06/07/17 14:15 (Tylenol) 650 mg Q4H PRN PO 06/07/17 14:15 06/08/17 00:03 (Milk Of Magnesia Liq) 30 ml DAILY PRN PO 06/07/17 14:15 (Mag-Al Plus Susp Liq) 30 ml Q6H PRN PO 06/07/17 14:15 (Norvasc) 5 mg BID PO 06/07/17 21:00 06/08/17 11:18 (Aspirin Chew) 81 mg DAILY PO 06/08/17 09:00 06/08/17 11:17 (Lipitor) 10 mg DAILY PO 06/08/17 09:00 06/08/17 11:19 (Depakote Dr) 250 mg BID PO 06/07/17 21:00 06/08/17 11:19 (Colace) 100 mg DAILY PO 06/08/17 09:00 06/08/17 11:18 (Cozaar) 50 mg DAILY PO 06/08/17 09:00 06/08/17 11:19 (Protonix) 20 mg DAILY PO 06/08/17 09:00 06/08/17 11:18 (risperDAL M-TAB) 1 mg DAILY@09,16 PO 06/07/17 16:00 06/08/17 15:49 (Nolvadex) 20 mg DAILY PO 06/08/17 09:00 (Namenda) 10 mg BID PO 06/07/17 21:00 06/08/17 11:18 (Robitussin Dm 200-20 Mg/10 ml Liq) 10 ml Q6H PRN PO 06/07/17 19:45 06/07/17 21:12 (Lopressor) 50 mg BID PO 06/08/17 09:00 06/08/17 11:20 (Benadryl 2% Cream) 1 applic TID PRN TOPICAL 06/08/17 09:15 A/P Problem List: (1) Dementia ICD Code: F03.90 - Unspecified dementia without behavioral disturbance Status: Chronic (2) Schizophrenia, paranoid type ICD Code: F20.0 - Paranoid schizophrenia Status: Acute (3) Hypertension ICD Code: I10 - Essential (primary) hypertension Status: Chronic (4) Hyperlipidemia ICD Code: E78.5 - Hyperlipidemia, unspecified Status: Chronic (5) Bipolar disorder ICD Code: F31.9 - Bipolar disorder, unspecified Status: Chronic (6) History of breast cancer ICD Code: Z85.3 - Personal history of malignant neoplasm of breast Status: Resolved Assessment and Plan 1. Dementia/schizophrenia. Management as per psychiatry. The patient currently on Namenda and risperidone. Patient also has Ativan as needed for moderate to severe anxiety. 2. Hypertension. Blood pressure seems to be stable. Continue home antihypertensive medications which include amlodipine 5 mg by mouth twice a day, losartan 50 mg by mouth daily, metoprolol tartrate 50 mg by mouth twice a day. I will also order clonidine as needed for systolic blood pressure more than 160. 06/08 BP elevated. Dose of metoprolol increased to 50 mg po BID. Continue Clonidine as needed. 3. Hyperlipidemia. Continue statin. Fasting lipid profile shows triglycerides of 99, total cholesterol 129, LDL cholesterol 53 and HDL cholesterol 56.1. 4. History of breast cancer. Continue tamoxifen. 5. Cough Will order a CXR and Rx Robitussin DM as needed. Patient is afebrile. No leukocytosis or signs of infection. 06/08 CXR negative for acute disease. 5. DVT prophylaxis. Encourage ambulation. Vinay Weathers MD Jun 08, 2017 17:52
[2017-06-08 18:00] VITALS: BP 113/56; PULSE 61; RESP 18; TEMP 97.6; O2SAT 97
[2017-06-09 06:34] VITALS: BP 156/70; PULSE 58; RESP 17; TEMP 98.4; O2SAT 100
[2017-06-09] MEDS: TAMOXIFEN CITRATE 10 MG TAB PO SCH (08:56)
[2017-06-09] MEDS: DOCUSATE SODIUM 100 MG CAP PO SCH (08:56)
[2017-06-09] MEDS: ASPIRIN 81 MG CHEW TAB PO SCH (08:56)
[2017-06-09] MEDS: METOPROLOL TARTRATE 50 MG TAB PO SCH ×2 (08:57→20:56)
[2017-06-09] MEDS: MEMANTINE HCL 10 MG TAB PO SCH ×2 (08:57→20:56)
[2017-06-09] MEDS: risperiDONE ODT 1 MG TAB PO SCH ×2 (08:57→15:59)
[2017-06-09] MEDS: ATORVASTATIN 10 MG TAB PO SCH (08:57)
[2017-06-09] MEDS: PANTOPRAZOLE SOD 20 MG DELAYED RELEASE TAB PO SCH (08:57)
[2017-06-09] MEDS: DIVALPROEX SODIUM DELAYED RELEASE 250 MG TAB PO SCH ×2 (08:57→20:56)
[2017-06-09] MEDS: LOSARTAN 50 MG TAB PO SCH (08:57)
--- NOTE | 2017-06-09 10:49 | HHI.PR ---
Subjective Remarks patient c/o cough and nasal congestion. BP elevated denies cp/sob afebrile Objective Vitals Vital Signs Date Time Temp Pulse Resp B/P (MAP) Pulse Ox O2 Delivery O2 Flow Rate FiO2 06/09/17 06:34 98.4 58 17 156/70 (98) 100 06/08/17 18:00 97.6 61 18 113/56 (75) 97 I/O 06/08/17 06/08/17 06/08/17 06/09/17 06/09/17 06/09/17 07:00 15:00 23:00 07:00 15:00 23:00 Intake Total 840 ml 240 ml Balance 840 ml 240 ml Intake Oral 840 ml 240 ml Result Diagram: 06/08/17 0850 06/08/17 0850 Imaging Last Impressions Chest X-Ray 06/07/17 0000 Signed Impressions: Service Date/Time: May 22:22 - CONCLUSION: No acute disease. Elmo Tobias MD Objective Remarks AA NAD PERRLA Clear lungs BL Abdomen soft, nt, nd no edema in lower extremities. (+) nasal congestion Medications and IVs Current Medications Medications (Trade) Dose Ordered Sig/Diane Route Start Time Stop Time Status Last Admin (Ativan) 1 mg Q6H PRN PO 06/07/17 14:15 (Ativan Inj) 1 mg Q6H PRN IM 06/07/17 14:15 (Tylenol) 650 mg Q4H PRN PO 06/07/17 14:15 06/09/17 11:20 (Milk Of Magnesia Liq) 30 ml DAILY PRN PO 06/07/17 14:15 (Mag-Al Plus Susp Liq) 30 ml Q6H PRN PO 06/07/17 14:15 (Aspirin Chew) 81 mg DAILY PO 06/08/17 09:00 06/09/17 08:56 (Lipitor) 10 mg DAILY PO 06/08/17 09:00 06/09/17 08:57 (Depakote Dr) 250 mg BID PO 06/07/17 21:00 06/09/17 08:57 (Colace) 100 mg DAILY PO 06/08/17 09:00 06/09/17 08:56 (Cozaar) 50 mg DAILY PO 06/08/17 09:00 06/09/17 08:57 (Protonix) 20 mg DAILY PO 06/08/17 09:00 06/09/17 08:57 (risperDAL M-TAB) 1 mg DAILY@09,16 PO 06/07/17 16:00 06/09/17 15:59 (Nolvadex) 20 mg DAILY PO 06/08/17 09:00 06/09/17 08:56 (Namenda) 10 mg BID PO 06/07/17 21:00 06/09/17 08:57 (Robitussin Dm 200-20 Mg/10 ml Liq) 10 ml Q6H PRN PO 06/07/17 19:45 06/09/17 11:19 (Lopressor) 50 mg BID PO 06/08/17 09:00 06/09/17 08:57 (Benadryl 2% Cream) 1 applic TID PRN TOPICAL 06/08/17 09:15 (Norvasc) 10 mg DAILY PO 06/09/17 09:00 06/09/17 10:24 (Flonase James Spr) 2 spray DAILY NASAL 06/09/17 11:00 06/09/17 15:27 A/P Problem List: (1) Dementia ICD Code: F03.90 - Unspecified dementia without behavioral disturbance Status: Chronic (2) Schizophrenia, paranoid type ICD Code: F20.0 - Paranoid schizophrenia Status: Acute (3) Hypertension ICD Code: I10 - Essential (primary) hypertension Status: Chronic (4) Hyperlipidemia ICD Code: E78.5 - Hyperlipidemia, unspecified Status: Chronic (5) Bipolar disorder ICD Code: F31.9 - Bipolar disorder, unspecified Status: Chronic (6) History of breast cancer ICD Code: Z85.3 - Personal history of malignant neoplasm of breast Status: Resolved Assessment and Plan 1. Dementia/schizophrenia. Management as per psychiatry. The patient currently on Namenda and risperidone. Patient also has Ativan as needed for moderate to severe anxiety. 2. Hypertension. Blood pressure seems to be stable. Continue home antihypertensive medications which include amlodipine 5 mg by mouth twice a day, losartan 50 mg by mouth daily, metoprolol tartrate 50 mg by mouth twice a day. I will also order clonidine as needed for systolic blood pressure more than 160. 06/08 BP elevated. Dose of metoprolol increased to 50 mg po BID. Continue Clonidine as needed. 06/09 add amlodipine 10 mg po daily. Continue beta ryan. Continue to monitor vital signs. 3. Hyperlipidemia. Continue statin. Fasting lipid profile shows triglycerides of 99, total cholesterol 129, LDL cholesterol 53 and HDL cholesterol 56.1. 4. History of breast cancer. Continue tamoxifen. 5. Cough Will order a CXR and Rx Robitussin DM as needed. Patient is afebrile. No leukocytosis or signs of infection. 06/08 CXR negative for acute disease. 05/30 Will add Flonase nasl spray for congestion. Will order Flu A and B antigen. 5. DVT prophylaxis. Encourage ambulation. Vinay Weathers MD Jun 09, 2017 10:49
[2017-06-09] MEDS: guaiFENesin/DEXTROMETHORPHAN 200 MG/20 MG/10 ML CUP PO PRN ×2 (11:19→18:35)
[2017-06-09] MEDS: ACETAMINOPHEN 325 MG TAB PO PRN ×2 (11:20→18:35)
--- NOTE | 2017-06-09 14:22 | HHI.PYPN ---
Subjective Remarks Pt seen and discussed with staff. She remains confused and is looking for her . She has been pleasant and cooperative. No SI/HI Mental Status Examination Appearance: Appropriate Consciousness: Alert Orientation: Person Motor Activity: Normal gait Speech: Hesitant Language: Perseveration Fund of Knowledge: Inadequate Attention and Concentration: Easily Distracted Memory: Impaired Mood: Anxious Affect: Labile Thought Process & Associations: Loose associations, Circumstantial, Disorganized, Tangential Thought Content: Bizarre thinking, Delusional Hallucination Type: None Delusion Type: Paranoid Suicidal Ideation: Yes Suicidal Plan: No Suicidal Intention: No Homicidal Ideation: No Homicidal Plan: No Homicidal Intention: No Insight: Poor Judgment: Poor Results Labs Date/Time Source Procedure Growth Status 06/09/17 12:35 Nasal Washing Influenza Types A,B Antigen (CALLIE) - Final NEGATIVE FOR FLU A AND B ANTIGEN.... Complete Vitals/IOs Vital Signs Date Time Temp Pulse Resp B/P (MAP) Pulse Ox O2 Delivery O2 Flow Rate FiO2 06/09/17 06:34 98.4 58 17 156/70 (98) 100 06/07/17 13:26 Room Air Intake and Output 06/09/17 06/09/17 06/10/17 08:00 16:00 00:00 Intake Total 240 ml 240 ml Balance 240 ml 240 ml Assessment & Plan Problem List: (1) Schizophrenia, paranoid type ICD Codes: F20.0 - Paranoid schizophrenia Status: Acute (2) Dementia in other diseases classified elsewhere with behavioral disturbance ICD Codes: F02.81 - Dementia in other diseases classified elsewhere with behavioral disturbance Assessment & Plan Continue current tx plan. Estimated LOS: days Justification for Cont. Inpt. impairments in reality testing Request HC Surrog/Guard Advoc?: Yes Veronique Stephens MD Jun 09, 2017 14:22
[2017-06-09] MEDS: FLUTICASONE PROPIONATE 50 MCG/ACT 16 GM NASAL SPRAY NASAL SCH (15:27)
[2017-06-09 18:32] VITALS: BP 114/59; PULSE 60; RESP 20; TEMP 98.2; O2SAT 92
[2017-06-10 06:17] VITALS: BP 143/71; PULSE 57; RESP 18; TEMP 98.2; O2SAT 93
[2017-06-10] MEDS: ATORVASTATIN 10 MG TAB PO SCH (08:47)
[2017-06-10] MEDS: risperiDONE ODT 1 MG TAB PO SCH ×2 (08:47→16:55)
[2017-06-10] MEDS: LOSARTAN 50 MG TAB PO SCH (08:47)
[2017-06-10] MEDS: MEMANTINE HCL 10 MG TAB PO SCH ×2 (08:47→20:22)
[2017-06-10] MEDS: ASPIRIN 81 MG CHEW TAB PO SCH (08:47)
[2017-06-10] MEDS: TAMOXIFEN CITRATE 10 MG TAB PO SCH (08:47)
[2017-06-10] MEDS: METOPROLOL TARTRATE 50 MG TAB PO SCH ×2 (08:47→20:18)
[2017-06-10] MEDS: DOCUSATE SODIUM 100 MG CAP PO SCH (08:48)
[2017-06-10] MEDS: FLUTICASONE PROPIONATE 50 MCG/ACT 16 GM NASAL SPRAY NASAL SCH (08:48)
[2017-06-10] MEDS: PANTOPRAZOLE SOD 20 MG DELAYED RELEASE TAB PO SCH (08:48)
[2017-06-10] MEDS: DIVALPROEX SODIUM DELAYED RELEASE 250 MG TAB PO SCH ×2 (08:48→20:19)
--- NOTE | 2017-06-10 10:24 | HHI.PR ---
Subjective Remarks c/o frequent cough. Denies fevers or chills. Congestion still present Objective Vitals Vital Signs Date Time Temp Pulse Resp B/P (MAP) Pulse Ox O2 Delivery O2 Flow Rate FiO2 06/10/17 06:17 98.2 57 18 143/71 (95) 93 06/09/17 19:35 16 06/09/17 18:32 98.2 60 20 114/59 (77) 92 I/O 06/09/17 06/09/17 06/09/17 06/10/17 06/10/17 06/10/17 07:00 15:00 23:00 07:00 15:00 23:00 Intake Total 480 ml 240 ml Balance 480 ml 240 ml Intake Oral 480 ml 240 ml Result Diagram: 06/08/17 0850 06/08/17 0850 Imaging Last Impressions Chest X-Ray 06/07/17 0000 Signed Impressions: Service Date/Time: May 22:22 - CONCLUSION: No acute disease. Elmo Tobias MD Objective Remarks AA NAD PERRLA There is some rhonchi diffusely on both lower lung felipe. No rales or crackles auscultated. Abdomen soft, nt, nd no edema in lower extremities. (+) nasal congestion Medications and IVs Current Medications Medications (Trade) Dose Ordered Sig/Diane Route Start Time Stop Time Status Last Admin (Ativan) 1 mg Q6H PRN PO 06/07/17 14:15 (Ativan Inj) 1 mg Q6H PRN IM 06/07/17 14:15 (Tylenol) 650 mg Q4H PRN PO 06/07/17 14:15 06/09/17 18:35 (Milk Of Magnesia Liq) 30 ml DAILY PRN PO 06/07/17 14:15 (Mag-Al Plus Susp Liq) 30 ml Q6H PRN PO 06/07/17 14:15 (Aspirin Chew) 81 mg DAILY PO 06/08/17 09:00 06/10/17 08:47 (Lipitor) 10 mg DAILY PO 06/08/17 09:00 06/10/17 08:47 (Depakote Dr) 250 mg BID PO 06/07/17 21:00 06/10/17 08:48 (Colace) 100 mg DAILY PO 06/08/17 09:00 06/10/17 08:48 (Cozaar) 50 mg DAILY PO 06/08/17 09:00 06/10/17 08:47 (Protonix) 20 mg DAILY PO 06/08/17 09:00 06/10/17 08:48 (risperDAL M-TAB) 1 mg DAILY@09,16 PO 06/07/17 16:00 06/10/17 08:47 (Nolvadex) 20 mg DAILY PO 06/08/17 09:00 06/10/17 08:47 (Namenda) 10 mg BID PO 06/07/17 21:00 06/10/17 08:47 (Robitussin Dm 200-20 Mg/10 ml Liq) 10 ml Q6H PRN PO 06/07/17 19:45 06/09/17 18:35 (Lopressor) 50 mg BID PO 06/08/17 09:00 06/10/17 08:47 (Benadryl 2% Cream) 1 applic TID PRN TOPICAL 06/08/17 09:15 (Norvasc) 10 mg DAILY PO 06/09/17 09:00 06/10/17 08:47 (Flonase James Spr) 2 spray DAILY NASAL 06/09/17 11:00 06/10/17 08:48 A/P Problem List: (1) Dementia ICD Code: F03.90 - Unspecified dementia without behavioral disturbance Status: Chronic (2) Schizophrenia, paranoid type ICD Code: F20.0 - Paranoid schizophrenia Status: Acute (3) Hypertension ICD Code: I10 - Essential (primary) hypertension Status: Chronic (4) Hyperlipidemia ICD Code: E78.5 - Hyperlipidemia, unspecified Status: Chronic (5) Bipolar disorder ICD Code: F31.9 - Bipolar disorder, unspecified Status: Chronic (6) History of breast cancer ICD Code: Z85.3 - Personal history of malignant neoplasm of breast Status: Resolved (7) URI (upper respiratory infection) ICD Code: J06.9 - Acute upper respiratory infection, unspecified (8) Acute bronchitis ICD Code: J20.9 - Acute bronchitis, unspecified Assessment and Plan 1. Dementia/schizophrenia. Management as per psychiatry. The patient currently on Namenda and risperidone. Patient also has Ativan as needed for moderate to severe anxiety. 2. Hypertension. Blood pressure seems to be stable. Continue home antihypertensive medications which include amlodipine 5 mg by mouth twice a day, losartan 50 mg by mouth daily, metoprolol tartrate 50 mg by mouth twice a day. I will also order clonidine as needed for systolic blood pressure more than 160. 06/08 BP elevated. Dose of metoprolol increased to 50 mg po BID. Continue Clonidine as needed. 06/09 add amlodipine 10 mg po daily. Continue beta ryan. Continue to monitor vital signs. 06/10 BP better controlled. Continue Amlodipine 10 mg po daily, losartan 50 mg po daily and metoprolol tartrate 50 mg po BID. 3. Hyperlipidemia. Continue statin. Fasting lipid profile shows triglycerides of 99, total cholesterol 129, LDL cholesterol 53 and HDL cholesterol 56.1. 4. History of breast cancer. Continue tamoxifen. 5. Cough Will order a CXR and Rx Robitussin DM as needed. Patient is afebrile. No leukocytosis or signs of infection. 06/08 CXR negative for acute disease. 06/09 Will add Flonase nasl spray for congestion. Will order Flu A and B antigen. 06/10 Flu A and B negative. Patient with some expiratory rhonchi - Will start on oral prednisone. 6. URI with acute bronchitis CXR negative for acute disease. Will start patient on Prednisone. Will schedule antitusive medication. Add Duoneb nebulizer treatments. 7. DVT prophylaxis. Encourage ambulation. Vinay Weathers MD Jun 10, 2017 10:24
[2017-06-10] MEDS: guaiFENesin/DEXTROMETHORPHAN 200 MG/20 MG/10 ML CUP PO SCH ×3 (10:45→23:00)
[2017-06-10] MEDS ORDERED: RESP: ALBUTEROL 2.5 MG/IPRATROPIUM 0.5 MG NEB (SCH) ONE (11:24)
[2017-06-10] MEDS: RESP: ALBUTEROL 2.5 MG/IPRATROPIUM 0.5 MG NEB (SCH) NEB ×2 (14:00→21:45)
[2017-06-10] MEDS: predniSONE 20 MG TAB PO SCH ×2 (14:07→20:19)
[2017-06-10] MEDS: ACETAMINOPHEN 325 MG TAB PO PRN ×2 (14:52→20:18)
--- NOTE | 2017-06-10 16:01 | HHI.PYPN ---
Subjective Remarks Pt seen and discussed with staff. She has been cooperative and compliant with care. No aggression or agitation. No delusions expressed today. No SI/HI. She c/ o of poor sleep. Mental Status Examination Appearance: Appropriate Consciousness: Alert Orientation: Person Motor Activity: Normal gait Speech: Hesitant Language: Perseveration Fund of Knowledge: Inadequate Attention and Concentration: Easily Distracted Memory: Impaired Mood: Anxious Affect: Labile Thought Process & Associations: Loose associations, Circumstantial, Disorganized, Tangential Thought Content: Bizarre thinking, Delusional Hallucination Type: None Delusion Type: Paranoid Suicidal Ideation: Yes Suicidal Plan: No Suicidal Intention: No Homicidal Ideation: No Homicidal Plan: No Homicidal Intention: No Insight: Poor Judgment: Poor Results Labs Test 06/10/17 15:18 Date/Time Source Procedure Growth Status 06/09/17 12:35 Nasal Washing Influenza Types A,B Antigen (CALLIE) - Final NEGATIVE FOR FLU A AND B ANTIGEN.... Complete Vitals/IOs Vital Signs Date Time Temp Pulse Resp B/P (MAP) Pulse Ox O2 Delivery O2 Flow Rate FiO2 06/10/17 06:17 98.2 57 18 143/71 (95) 93 06/07/17 13:26 Room Air Assessment & Plan Problem List: (1) Schizophrenia, paranoid type ICD Codes: F20.0 - Paranoid schizophrenia Status: Acute (2) Dementia in other diseases classified elsewhere with behavioral disturbance ICD Codes: F02.81 - Dementia in other diseases classified elsewhere with behavioral disturbance Assessment & Plan Continue current tx plan. Estimated LOS: days Justification for Cont. Inpt. risk of decompensation Request HC Surrog/Guard Advoc?: Yes Veronique Stephens MD Jun 10, 2017 16:01
[2017-06-10 16:08] LABS: BICARBONATE 30.9 MEQ/L (21.0-32.0); CALCIUM 8.5 MG/DL (8.5-10.1); CREATININE 0.7 MG/DL (0.50-1.00)
[2017-06-10] MEDS: LORazepam 1 MG TAB PO PRN (20:19)
[2017-06-11] MEDS: guaiFENesin/DEXTROMETHORPHAN 200 MG/20 MG/10 ML CUP PO SCH ×4 (04:44→22:29)
[2017-06-11 06:04] VITALS: BP 165/76; PULSE 68; RESP 18; TEMP 97.9; O2SAT 96
[2017-06-11] MEDS: RESP: ALBUTEROL 2.5 MG/IPRATROPIUM 0.5 MG NEB (SCH) NEB ×3 (08:00→21:12)
[2017-06-11] MEDS: METOPROLOL TARTRATE 50 MG TAB PO SCH ×2 (08:47→20:44)
[2017-06-11] MEDS: MEMANTINE HCL 10 MG TAB PO SCH ×2 (08:47→20:43)
[2017-06-11] MEDS: DIVALPROEX SODIUM DELAYED RELEASE 250 MG TAB PO SCH ×2 (08:47→20:43)
[2017-06-11] MEDS: PANTOPRAZOLE SOD 20 MG DELAYED RELEASE TAB PO SCH (08:47)
[2017-06-11] MEDS: LOSARTAN 50 MG TAB PO SCH (08:47)
[2017-06-11] MEDS: DOCUSATE SODIUM 100 MG CAP PO SCH (08:48)
[2017-06-11] MEDS: predniSONE 20 MG TAB PO SCH (08:48)
[2017-06-11] MEDS: risperiDONE ODT 1 MG TAB PO SCH ×2 (08:48→16:26)
[2017-06-11] MEDS: ATORVASTATIN 10 MG TAB PO SCH (08:48)
[2017-06-11] MEDS: ASPIRIN 81 MG CHEW TAB PO SCH (08:49)
[2017-06-11] MEDS: TAMOXIFEN CITRATE 10 MG TAB PO SCH (08:49)
[2017-06-11] MEDS: FLUTICASONE PROPIONATE 50 MCG/ACT 16 GM NASAL SPRAY NASAL SCH (09:20)
[2017-06-11] MEDS ORDERED: LOSARTAN 50 MG TAB PO ONE (09:30)
[2017-06-11] MEDS: MAGNESIUM HYDROXIDE SUSP 30 ML CUP PO PRN (10:09)
--- NOTE | 2017-06-11 15:19 | HHI.PYPN ---
Subjective Remarks The patient was seen today for psychiatric reevaluation along with nursing charge, patient was found calm, cooperative and pleasant. Patient says that she is ready to go back home. She gave me the telephone number of her son Jason, but I could not reach him. She reports good mood, denies depression, denies anhedonia, she denies suicidal and homicidal ideation, she denies visual and auditory hallucinations. The patient is oriented 3. Compliant with medications, no significant side effects. No agitation or aggressive behavior reported. Review of Systems Except as stated in HPI: all other systems reviewed are Neg Mental Status Examination Appearance: Appropriate Consciousness: Alert Orientation: x4 Motor Activity: Normal gait Speech: Unremarkable, Hesitant Language: Perseveration Fund of Knowledge: Inadequate Attention and Concentration: Easily Distracted Memory: Impaired Mood: Appropriate Affect: Appropriate Thought Process & Associations: Intact, Logical, Tangential Thought Content: Bizarre thinking, Delusional Hallucination Type: None Delusion Type: Paranoid Suicidal Ideation: No Suicidal Plan: No Suicidal Intention: No Homicidal Ideation: No Homicidal Plan: No Homicidal Intention: No Insight: Fair Judgment: Impulsive Results Labs Test 06/10/17 15:18 Blood Urea Nitrogen 16 MG/DL Creatinine 0.70 MG/DL Random Glucose 109 MG/DL Calcium Level 8.5 MG/DL Sodium Level 137 MEQ/L Potassium Level 3.6 MEQ/L Chloride Level 102 MEQ/L Carbon Dioxide Level 30.9 MEQ/L Anion Gap 4 MEQ/L Estimat Glomerular Filtration Rate 81 ML/MIN Date/Time Source Procedure Growth Status 06/09/17 12:35 Nasal Washing Influenza Types A,B Antigen (CALLIE) - Final NEGATIVE FOR FLU A AND B ANTIGEN.... Complete Vitals/IOs Vital Signs Date Time Temp Pulse Resp B/P (MAP) Pulse Ox O2 Delivery O2 Flow Rate FiO2 06/11/17 06:04 97.9 68 18 165/76 (105) 96 06/07/17 13:26 Room Air Assessment & Plan Problem List: (1) Schizophrenia, paranoid type ICD Codes: F20.0 - Paranoid schizophrenia Status: Acute Assessment & Plan: Patient seems to be responding positively to psychotropic regimen. Continue current psychotropic dose. (2) Dementia in other diseases classified elsewhere with behavioral disturbance ICD Codes: F02.81 - Dementia in other diseases classified elsewhere with behavioral disturbance Assessment & Plan Estimated LOS: days Justification for Cont. Inpt. We'll start to coordinate a safe discharge plan. Request HC Surrog/Guard Advoc?: Yes Jero Villarreal MD Jun 11, 2017 15:19
--- NOTE | 2017-06-11 15:55 | HHI.PR ---
Subjective Remarks cough better states she feels hungry because she does not like the food. Denies fevers or chills. Wants to go home. Objective Vitals Vital Signs Date Time Temp Pulse Resp B/P (MAP) Pulse Ox O2 Delivery O2 Flow Rate FiO2 06/11/17 06:04 97.9 68 18 165/76 (105) 96 Result Diagram: 06/08/17 0850 06/10/17 1518 Imaging Last Impressions Chest X-Ray 06/07/17 0000 Signed Impressions: Service Date/Time: May 22:22 - CONCLUSION: No acute disease. Elmo Tobias MD Objective Remarks AA NAD PERRLA There is some rhonchi diffusely on both lower lung felipe. No rales or crackles auscultated. Abdomen soft, nt, nd no edema in lower extremities. (+) nasal congestion Medications and IVs Current Medications Medications (Trade) Dose Ordered Sig/Diane Route Start Time Stop Time Status Last Admin (Ativan) 1 mg Q6H PRN PO 06/07/17 14:15 06/11/17 22:20 (Ativan Inj) 1 mg Q6H PRN IM 06/07/17 14:15 (Tylenol) 650 mg Q4H PRN PO 06/07/17 14:15 06/11/17 20:44 (Milk Of Magnesia Liq) 30 ml DAILY PRN PO 06/07/17 14:15 06/11/17 10:09 (Mag-Al Plus Susp Liq) 30 ml Q6H PRN PO 06/07/17 14:15 (Aspirin Chew) 81 mg DAILY PO 06/08/17 09:00 06/12/17 08:23 (Lipitor) 10 mg DAILY PO 06/08/17 09:00 06/12/17 08:24 (Depakote Dr) 250 mg BID PO 06/07/17 21:00 06/12/17 08:22 (Colace) 100 mg DAILY PO 06/08/17 09:00 06/12/17 08:22 (Protonix) 20 mg DAILY PO 06/08/17 09:00 06/12/17 08:22 (risperDAL M-TAB) 1 mg DAILY@09,16 PO 06/07/17 16:00 1/2/18 08:22 (Nolvadex) 20 mg DAILY PO 06/08/17 09:00 06/12/17 08:23 (Namenda) 10 mg BID PO 06/07/17 21:00 06/12/17 08:23 (Lopressor) 50 mg BID PO 06/08/17 09:00 06/12/17 08:23 (Benadryl 2% Cream) 1 applic TID PRN TOPICAL 06/08/17 09:15 (Norvasc) 10 mg DAILY PO 06/09/17 09:00 06/12/17 08:22 (Flonase James Spr) 2 spray DAILY NASAL 06/09/17 11:00 06/12/17 08:24 (Robitussin Dm 200-20 Mg/10 ml Liq) 10 ml Q6H PO 06/10/17 11:00 06/12/17 05:00 (Duoneb Neb) 1 ampule Q6HR WHILE AWAKE NEB NEB 06/10/17 14:00 06/11/17 21:12 (Cozaar) 100 mg DAILY PO 06/12/17 09:00 06/12/17 08:23 (Deltasone) 10 mg BID PO 06/11/17 21:00 06/12/17 08:24 (Catapres) 0.1 mg Q6H PRN PO 06/11/17 17:45 A/P Problem List: (1) Dementia ICD Code: F03.90 - Unspecified dementia without behavioral disturbance Status: Chronic (2) Schizophrenia, paranoid type ICD Code: F20.0 - Paranoid schizophrenia Status: Acute (3) Hypertension ICD Code: I10 - Essential (primary) hypertension Status: Chronic (4) Hyperlipidemia ICD Code: E78.5 - Hyperlipidemia, unspecified Status: Chronic (5) Bipolar disorder ICD Code: F31.9 - Bipolar disorder, unspecified Status: Chronic (6) History of breast cancer ICD Code: Z85.3 - Personal history of malignant neoplasm of breast Status: Resolved (7) URI (upper respiratory infection) ICD Code: J06.9 - Acute upper respiratory infection, unspecified (8) Acute bronchitis ICD Code: J20.9 - Acute bronchitis, unspecified Assessment and Plan 1. Dementia/schizophrenia. Management as per psychiatry. The patient currently on Namenda and risperidone. Patient also has Ativan as needed for moderate to severe anxiety. 2. Hypertension. Blood pressure seems to be stable. Continue home antihypertensive medications which include amlodipine 5 mg by mouth twice a day, losartan 50 mg by mouth daily, metoprolol tartrate 50 mg by mouth twice a day. I will also order clonidine as needed for systolic blood pressure more than 160. 06/08 BP elevated. Dose of metoprolol increased to 50 mg po BID. Continue Clonidine as needed. 06/09 add amlodipine 10 mg po daily. Continue beta ryan. Continue to monitor vital signs. 06/10 BP better controlled. Continue Amlodipine 10 mg po daily, losartan 50 mg po daily and metoprolol tartrate 50 mg po BID. 06/11 BP still uncontrolled. Increase dose of Losartan to 100 mg po daily. Continue amlodipine and metoprolol at same dose. 3. Hyperlipidemia. Continue statin. Fasting lipid profile shows triglycerides of 99, total cholesterol 129, LDL cholesterol 53 and HDL cholesterol 56.1. 4. History of breast cancer. Continue tamoxifen. 5. Cough Will order a CXR and Rx Robitussin DM as needed. Patient is afebrile. No leukocytosis or signs of infection. 06/08 CXR negative for acute disease. 06/09 Will add Flonase nasl spray for congestion. Will order Flu A and B antigen. 06/10 Flu A and B negative. Patient with some expiratory rhonchi - Will start on oral prednisone. 6. URI with acute bronchitis CXR negative for acute disease. Will start patient on Prednisone. Will schedule antitusive medication. Add Duoneb nebulizer treatments. 06/11/17 Cough better. Decrease prednisone to 10 mg po bid. Taper dose over next 3 days. 7. DVT prophylaxis. Encourage ambulation. Discharge Planning DC as per primary. Vinay Weathers MD Jun 11, 2017 15:55
[2017-06-11 17:00] VITALS: BP 150/70; PULSE 69; RESP 18; TEMP 97.9; O2SAT 96
[2017-06-11] MEDS ORDERED: cloNIDine HCL 0.1 MG TAB PO PRN (17:45)
[2017-06-11] MEDS: ACETAMINOPHEN 325 MG TAB PO PRN (20:44)
[2017-06-11] MEDS: predniSONE 10 MG TAB PO SCH (20:46)
[2017-06-11] MEDS: LORazepam 1 MG TAB PO PRN (22:20)
[2017-06-12] MEDS: guaiFENesin/DEXTROMETHORPHAN 200 MG/20 MG/10 ML CUP PO SCH ×4 (05:00→20:35)
[2017-06-12 07:08] VITALS: BP 141/84; PULSE 62; RESP 17; TEMP 97.3; O2SAT 93
[2017-06-12] MEDS: RESP: ALBUTEROL 2.5 MG/IPRATROPIUM 0.5 MG NEB (SCH) NEB ×2 (08:00→20:00)
[2017-06-12] MEDS: DIVALPROEX SODIUM DELAYED RELEASE 250 MG TAB PO SCH ×2 (08:22→20:31)
[2017-06-12] MEDS: risperiDONE ODT 1 MG TAB PO SCH ×2 (08:22→15:25)
[2017-06-12] MEDS: DOCUSATE SODIUM 100 MG CAP PO SCH (08:22)
[2017-06-12] MEDS: PANTOPRAZOLE SOD 20 MG DELAYED RELEASE TAB PO SCH (08:22)
[2017-06-12] MEDS: LOSARTAN 50 MG TAB PO SCH (08:23)
[2017-06-12] MEDS: TAMOXIFEN CITRATE 10 MG TAB PO SCH (08:23)
[2017-06-12] MEDS: ASPIRIN 81 MG CHEW TAB PO SCH (08:23)
[2017-06-12] MEDS: MEMANTINE HCL 10 MG TAB PO SCH ×2 (08:23→20:31)
[2017-06-12] MEDS: METOPROLOL TARTRATE 50 MG TAB PO SCH ×2 (08:23→20:31)
[2017-06-12] MEDS: predniSONE 10 MG TAB PO SCH ×2 (08:24→20:31)
[2017-06-12] MEDS: ATORVASTATIN 10 MG TAB PO SCH (08:24)
[2017-06-12] MEDS: FLUTICASONE PROPIONATE 50 MCG/ACT 16 GM NASAL SPRAY NASAL SCH (08:24)
[2017-06-12] MEDS: MAGNESIUM HYDROXIDE SUSP 30 ML CUP PO PRN (09:40)
--- NOTE | 2017-06-12 15:49 | HHI.PYPN ---
Subjective Remarks Patient seen in day room with floor staff, patient continues somewhat intense and confused though she does have also better eye contact and more appropriately reactive. She states she wants affect her own home with her son but appears she has been living in a [facility] home. Need to verify proper placement this lady, she is compliant with medications with no significant behavioral problems. She does denies suicidality of voices at this time Review of Systems Except as stated in HPI: all other systems reviewed are Neg Mental Status Examination Appearance: Appropriate Consciousness: Alert Orientation: x4 Motor Activity: Normal gait Speech: Unremarkable, Hesitant Language: Perseveration Fund of Knowledge: Inadequate Attention and Concentration: Easily Distracted Memory: Impaired Mood: Appropriate Affect: Appropriate Thought Process & Associations: Intact, Logical, Tangential Thought Content: Bizarre thinking, Delusional Hallucination Type: None Delusion Type: Paranoid Suicidal Ideation: No Suicidal Plan: No Suicidal Intention: No Homicidal Ideation: No Homicidal Plan: No Homicidal Intention: No Insight: Fair Judgment: Impulsive Results Labs Date/Time Source Procedure Growth Status 06/09/17 12:35 Nasal Washing Influenza Types A,B Antigen (CALLIE) - Final NEGATIVE FOR FLU A AND B ANTIGEN.... Complete Vitals/IOs Vital Signs Date Time Temp Pulse Resp B/P (MAP) Pulse Ox O2 Delivery O2 Flow Rate FiO2 06/12/17 07:08 97.3 62 17 141/84 (103) 93 Intake and Output 06/12/17 06/12/17 06/13/17 08:00 16:00 00:00 Intake Total 240 ml Balance 240 ml Assessment & Plan Problem List: (1) Schizophrenia, paranoid type ICD Codes: F20.0 - Paranoid schizophrenia Status: Acute (2) Dementia in other diseases classified elsewhere with behavioral disturbance ICD Codes: F02.81 - Dementia in other diseases classified elsewhere with behavioral disturbance Assessment & Plan Estimated LOS: days patient continues to show some mild improvement she continue somewhat confused perhaps a little paranoid with no behavior problems. For now continue treatment Justification for Cont. Inpt. At this time patient decompensated placed a lower level of care Discharge Planning Problem return to her [facility] home Request HC Surrog/Guard Advoc?: Yes Elmo Castañeda MD Jun 12, 2017 15:49
[2017-06-12 18:54] VITALS: BP 132/59; PULSE 68; RESP 17; TEMP 98.3; O2SAT 96
[2017-06-12] MEDS: LORazepam 1 MG TAB PO PRN (22:24)
[2017-06-13] MEDS: guaiFENesin/DEXTROMETHORPHAN 200 MG/20 MG/10 ML CUP PO SCH ×2 (05:00→11:00)
[2017-06-13 06:00] VITALS: BP 175/80; PULSE 66; RESP 18; TEMP 97.9; O2SAT 96
[2017-06-13] MEDS: MEMANTINE HCL 10 MG TAB PO SCH (08:44)
[2017-06-13] MEDS: ASPIRIN 81 MG CHEW TAB PO SCH (08:44)
[2017-06-13] MEDS: DIVALPROEX SODIUM DELAYED RELEASE 250 MG TAB PO SCH (08:44)
[2017-06-13] MEDS: DOCUSATE SODIUM 100 MG CAP PO SCH (08:44)
[2017-06-13] MEDS: ATORVASTATIN 10 MG TAB PO SCH (08:44)
[2017-06-13] MEDS: LOSARTAN 50 MG TAB PO SCH (08:45)
[2017-06-13] MEDS: predniSONE 10 MG TAB PO SCH (09:00)
[2017-06-13] MEDS: FLUTICASONE PROPIONATE 50 MCG/ACT 16 GM NASAL SPRAY NASAL SCH (09:00)
[2017-06-13] MEDS: METOPROLOL TARTRATE 50 MG TAB PO SCH (09:00)
[2017-06-13] MEDS: risperiDONE ODT 1 MG TAB PO SCH (09:00)
[2017-06-13] MEDS: TAMOXIFEN CITRATE 10 MG TAB PO SCH (09:00)
[2017-06-13] MEDS: PANTOPRAZOLE SOD 20 MG DELAYED RELEASE TAB PO SCH (09:00)
[2017-06-13] MEDS: RESP: ALBUTEROL 2.5 MG/IPRATROPIUM 0.5 MG NEB (SCH) NEB ×2 (11:08→14:00)
[2017-06-13] MEDS ORDERED: LIPI10TA PO (13:36)
[2017-06-13] MEDS ORDERED: COZA50TA PO (13:36)
[2017-06-13] MEDS ORDERED: PRED10 PO (13:36)
[2017-06-13] MEDS ORDERED: MEMA28CA PO (13:36)
[2017-06-13] MEDS ORDERED: AMLO10 PO (13:36)
[2017-06-13] MEDS ORDERED: PANT20 PO (13:36)
[2017-06-13] MEDS ORDERED: RISP1TAB54 PO (13:36)
[2017-06-13] MEDS ORDERED: ASPI81TA23 PO (13:36)
[2017-06-13] MEDS ORDERED: METO-309 PO (13:36)
[2017-06-13] MEDS ORDERED: TAMO20TA6 PO (13:36)
[2017-06-13] MEDS ORDERED: DIVA250T PO (13:36)
--- NOTE | 2017-06-13 13:45 | HHI.DS ---
Psychiatry Discharge Summary Inpatient Psychiatric care?: Yes Advance Directive: No Reason Not Provided: Due to Patient Condition Mental Health AdvanceDirective: No Health Care Proxy: No Admission Admission Date Jun 07, 2017 at 14:02 Admission Diagnosis: (1) Schizophrenia, paranoid type ICD Code: F20.0 - Paranoid schizophrenia (2) Dementia in other diseases classified elsewhere with behavioral disturbance ICD Code: F02.81 - Dementia in other diseases classified elsewhere with behavioral disturbance Brief History 82-year-old female brought in under a Yousif act with law enforcement history of reported Alzheimer's and bipolar disorder. According to the Yousif act, the patient is unable to care for herself and told her bench technician that she would harm herself if the bench technician did not help her to see her son. Patient is a poor historian with obvious delusional thinking, labile affect, impulsive behavior, delusional thinking, etc. According to the witness statement, the patient became agitated this morning, looking for her son and her , the latter of which is . She told the witness she had to go home to her house because her son and were leaving for [place]. The patient could not be calmed down. At 5:30 AM, the patient left the front door shouting her son's name and screaming to take her home. The patient began crying and using inappropriate language. The son could not be contacted by telephone. She left her residence again at 8:30 AM and when the son call back, he instructed the bench technician to call the police. At this time, the patient remains highly agitated, delusional that her is alive, delusional that her and son are going to [place], at times tearful and suicidal, etc. She is disoriented and confused. Tobacco Use In Past 30 Days: No Tobacco Past 30 Days Alcohol Use: Never Hospital Course Patient's hospital course was uneventful. Patient showed no significant behavioral problems, her paranoia and vigilance did diminish. There is some mild confusion with her peers but she related to family placement. She was compliant with medications. She did deny suicidality homicidality voices or visions. Patient is seen today she is calm cooperative still showing little insight into placement issues. There is a bed available for her today at her [facility] center that she was living at the [facility] patient to be discharged to that facility today with Rx 1 month follow-up Donny Augustman act Results Blood Pressure 175 / 80 Vital Signs Date Time Temp Pulse Resp B/P (MAP) Pulse Ox O2 Delivery O2 Flow Rate FiO2 06/13/17 06:00 97.9 66 18 175/80 (111) 96 Laboratory Tests Test 06/10/17 15:18 Random Glucose 109 MG/DL (74-106) Anion Gap 4 MEQ/L (5-15) Estimat Glomerular Filtration Rate 81 ML/MIN (>89) Laboratory Results Test 06/07/17 11:00 06/08/17 08:50 Valproic Acid (Depakene) Level 71 MCG/ML (50-100) Cholesterol Level 115 MG/DL (120-200) HDL Cholesterol 52.0 MG/DL (40.0-60.0) Hemoglobin A1c 5.4 % (4.3-6.0) LDL Cholesterol 43 MG/DL (0-99) Triglycerides Level 98 MG/DL (42-150) Summary of Procedures None done Imaging Last Impressions Chest X-Ray 06/07/17 0000 Signed Impressions: Service Date/Time: May 22:22 - CONCLUSION: No acute disease. Elmo Tobias MD Pending results at discharge: No Medications # of Antipsychotic meds at D/C: 1 Approp Antipsych med options 1 - Minimum of three failed multiple trials of monotherapy. 2 - Documented plan to taper to monotherapy due to previous use of multiple meds OR cross-taper in progress at D/C. 3 - Documentation of augmentation of Clozapine. 4 - Justification other than those listed in allowable values 1-3, document here : Discharge Discharge Date: Jun 13, 2017 Discharge Diagnosis: (1) Schizophrenia, paranoid type Diagnosis: Principal ICD Code: F20.0 - Paranoid schizophrenia Status: Acute (2) Dementia in other diseases classified elsewhere with behavioral disturbance Diagnosis: Secondary ICD Code: F02.81 - Dementia in other diseases classified elsewhere with behavioral disturbance Pt Condition on Discharge: Stable Discharge Disposition: Discharge to SNF Discharge Instructions Diet Instructions: As Tolerated, No Restrictions Activities you can perform: Regular-No Restrictions Scheduled Appointment: Donny Diaz Discharge Time > 30 minutes Mental Status Examination Appearance: Appropriate Consciousness: Alert Orientation: x4 Motor Activity: Normal gait Speech: Unremarkable, Hesitant Language: Perseveration Fund of Knowledge: Inadequate Attention and Concentration: Easily Distracted Memory: Impaired Mood: Appropriate Affect: Appropriate Thought Process & Associations: Intact, Logical, Tangential Thought Content: Bizarre thinking, Delusional Hallucination Type: None Delusion Type: Paranoid Suicidal Ideation: No Suicidal Plan: No Suicidal Intention: No Homicidal Ideation: No Homicidal Plan: No Homicidal Intention: No Insight: Fair Judgment: Impulsive Discharge/Advance Care Plan Health Problems: (1) Schizophrenia, paranoid type (2) Dementia in other diseases classified elsewhere with behavioral disturbance Goals to promote your health * To prevent worsening of your condition and complications * To maintain your health at the optimal level Directions to meet your goals Take your medications as prescribed Follow your dietary instruction Follow activity as directed Keep your appointments as scheduled Take your immunizations and boosters as scheduled If your symptoms worsen call your PCP, if no PCP go to Urgent Care Center or Emergency Room For 24/ questions related to your inpatient stay or results of tests pending at discharge, please contact Dr. Elmo Castañeda at Smoking is Dangerous to Your Health. Avoid second hand smoking Elmo Castañeda MD Jun 13, 2017 13:45
--- NOTE | 2017-06-13 15:22 | HHI.PR ---
Objective Vitals Vital Signs Date Time Temp Pulse Resp B/P (MAP) Pulse Ox O2 Delivery O2 Flow Rate FiO2 06/13/17 06:00 97.9 66 18 175/80 (111) 96 06/12/17 18:54 98.3 68 17 132/59 (83) 96 I/O 06/12/17 06/12/17 06/12/17 06/13/17 06/13/17 06/13/17 07:00 15:00 23:00 07:00 15:00 23:00 Intake Total 240 ml Balance 240 ml Intake Oral 240 ml Result Diagram: 06/10/17 1518 A/P Problem List: (1) Dementia ICD Code: F03.90 - Unspecified dementia without behavioral disturbance Status: Chronic (2) Schizophrenia, paranoid type ICD Code: F20.0 - Paranoid schizophrenia Status: Acute (3) Hypertension ICD Code: I10 - Essential (primary) hypertension Status: Chronic (4) Hyperlipidemia ICD Code: E78.5 - Hyperlipidemia, unspecified Status: Chronic (5) Bipolar disorder ICD Code: F31.9 - Bipolar disorder, unspecified Status: Chronic (6) History of breast cancer ICD Code: Z85.3 - Personal history of malignant neoplasm of breast Status: Resolved (7) URI (upper respiratory infection) ICD Code: J06.9 - Acute upper respiratory infection, unspecified (8) Acute bronchitis ICD Code: J20.9 - Acute bronchitis, unspecified Assessment and Plan 1. Dementia/schizophrenia. Management as per psychiatry. The patient currently on Namenda and risperidone. Patient also has Ativan as needed for moderate to severe anxiety. 2. Hypertension. -Blood pressure labile. Continue losartan and amlodipine metoprolol. Will add hydralazine. Continue monitor and adjust accordingly. Most likely labile secondary to agitation. 3. Hyperlipidemia. Continue statin. Fasting lipid profile shows triglycerides of 99, total cholesterol 129, LDL cholesterol 53 and HDL cholesterol 56.1. 4. History of breast cancer. Continue tamoxifen. 5. Cough Intermittent. Will discontinue Robitussin secondary to hypertension. CXR negative for acute disease. flu a and B Lungs are clear today. Will only give give a burst of prednisone since patient is asymptomatic at the moment and symptoms seems to be very mild. DVT prophylaxis. Yari Alba MD Jun 13, 2017 15:22
[2017-06-13] MEDS ORDERED: hydrALAZINE HCL 25 MG TAB PO SCH (15:30)
--- NOTE | 2017-06-13 16:50 | PD.TTN ---
Patient Problems 1. Discharge planning 2. Medication compliance 3. Knowledge deficit 4. Lack of coping skills Progress Toward Goals Provider Present: Dr. Jorge Luis Castañeda Provider Input: Maddy Rodriguez's treatment team met to discuss treatment plan, medication, and discharge plan. Patient is being discharged to her [facility]. Nurse(s) Input: Patient's nurse Casandra reports patient wants to go home. Patient present pleasant likes cooking. Patient is much improved Psychiatric Counselors Present: ELVIRA TranAmie Psych Therapist Input: Patient presents pleasant, cooperative, discharge focused. Patient will be discharged to her [facility] facility. Patient is medication compliant. Patient will follow up with [facility] Group Spec/RT/OT/QUICK Present: Canelo El, OT Group Spec/RT/OT/QUICK Input: Patient often isolates. Patient will attend selective groups ie ice cream social Ghislaine RajanAmie Jun 13, 2017 16:50
== END 2017-06-13 15:45 | disposition short-term general hospital (02) | DRG 885 ==
LOC: NEPD 10:21 → NEDA 14:02 → H260 16:15
PROVIDERS: ADMIT Psychiatry & Neurology Psychiatry; ATTEND Psychiatry & Neurology Psychiatry
DX: F20.0 Paranoid schizophrenia (principal); F02.81 Dementia in other diseases classified elsewhere, unspecified severity, with behavioral disturbance; R45.851 Suicidal ideations; G30.9 Alzheimer's disease, unspecified; J20.9 Acute bronchitis, unspecified; K21.9 Gastro-esophageal reflux disease without esophagitis; F31.9 Bipolar disorder, unspecified; I10 Essential (primary) hypertension; E78.5 Hyperlipidemia, unspecified; Z85.3 Personal history of malignant neoplasm of breast
CPT/HCPCS: 71010; 80048; 80053; 80061; 80164; 80307; 81001; 82306; 82607; 83036; 84443; 85025; 87804; 93005; 94640; 94664; 99285; J7512

== ENCOUNTER 2017-06-13 17:59 | Inpatient (IN) | payer OTHER, MEDICAID, MEDICARE ==
[~2017-06-13] VITALS: Ht 157.5 cm; Wt 75.3 kg
[~2017-06-13 17:59] MED LIST changes: +AMLO10 PO; +PRED10 PO
[2017-06-13 18:27] VITALS: BP 180/83; PULSE 59; RESP 18; O2SAT 97
[2017-06-13 18:34] VITALS: BP 180/83; PULSE 59; RESP 18; O2SAT 97
[2017-06-13 18:39] VITALS: TEMP 98.6
[2017-06-13 18:49] LABS: AUTOMATED NEUTROPHIL # 8.2 TH/MM3 (1.8-7.7); BASOPHIL % 0.5 % (0.0-2.0); EOSINOPHIL % 0.2 % (0.0-4.0); HEMATOCRIT 37.8 % (35.0-46.0); HEMOGLOBIN 13.2 GM/DL (11.6-15.3); LYMPH % 10.3 % (9.0-44.0); MEAN CELL VOLUME 88.1 FL (80.0-100.0); MEAN CORPUSCULAR HEMOGLOBIN 30.8 PG (27.0-34.0); MEAN PLATELET VOLUME 8.1 FL (7.0-11.0); MONOCYTE # 0.5 TH/MM3 (0-0.9); PLATELET COUNT 220 TH/MM3 (150-450); RED BLOOD COUNT 4.29 MIL/MM3 (4.00-5.30); RED CELL DISTRIBUTION WIDTH 13.9 % (11.6-17.2); WHITE BLOOD COUNT 9.8 TH/MM3 (4.0-11.0)
[2017-06-13 19:02] LABS: BILIRUBIN, URINE NEG (NEG); BLOOD, URINE NEG (NEG); GLUCOSE,URINE NEG (NEG); KETONE, URINE NEG (NEG); NITRITE,URINE NEG (NEG); PH, URINE 7.5 (5.0-8.5); SQUAMOUS EPITHELIAL CELL URINE 1 /hpf (0-5); URINE COLOR YELLOW (YELLW/STRAW); URINE LEUKOCYTE ESTERASE NEG (NEG)
[2017-06-13 19:06] LABS: ALBUMIN 3.7 GM/DL (3.4-5.0); AST (GOT) 17 U/L (15-37); BICARBONATE 26.3 MEQ/L (21.0-32.0); BLOOD UREA NITROGEN 19 MG/DL (7-18); CALCIUM 8.2 MG/DL (8.5-10.1); CHLORIDE 97 MEQ/L (98-107); CREATININE 0.84 MG/DL (0.50-1.00); GLOMERULAR FILTRATION RATE 65 ML/MIN (>89); GLUCOSE,RANDOM 119 MG/DL (74-106); SODIUM (NA) 132 MEQ/L (136-145)
[2017-06-13 19:07] LABS: ALT (GPT) 24 U/L (10-53)
[2017-06-13 19:09] LABS: ALKALINE PHOSPHATASE 50 U/L (45-117); TOTAL BILIRUBIN ADULT 0.5 MG/DL (0.2-1.0); TOTAL PROTEIN 7.6 GM/DL (6.4-8.2)
--- NOTE | 2017-06-13 19:36 | PD ---
HPI Chief Complaint: Altered Mental Status Time Seen by Provider: 18:14 Travel History International Travel<30 days: No Contact w/Intl Traveler<30days: No Traveled to known affect area: No History of Present Illness HPI Patient is an 82-year-old female presents emergency department under Yousif act. According to the Yousif act patient has a history of schizophrenia and dementia and lives at home, home health aide was unable to keep the patient in her room tonight and so called 911 patient was placed under Wavesat act for her safety and transported here. The patient's records do show that she has been admitted to our hospital before for her chronic dementia. Patient has one solitary complaint of dry cough, denies any head pain neck pain back pain chest pain abdominal pain nausea vomiting diarrhea constipation. PFSH Past Medical History Blood Disorders: No Bipolar Disorder: Yes Anxiety: No Depression: Yes (bi-polar and schizoaffective disorders) Heart Rhythm Problems: No High Cholesterol: Yes Chest Pain: No Congestive Heart Failure: No Dementia: Yes Diminished Hearing: No Endocrine: No Gastrointestinal Disorders: Yes GERD: Yes Genitourinary: No Hiatal Hernia: No Hypertension: Yes Immune Disorder: No Implanted Vascular Access Dvce: No Musculoskeletal: No Neurologic: Yes Psychiatric: Yes Reproductive: No Respiratory: No Immunizations Current: No Schizophrenia: Yes Ulcer: No ?: Not Menopausal: Yes : 1 Para: 1 Miscarriage: 0 : 0 Past Surgical History Abdominal Surgery: Yes Cardiac Surgery: No Ear Surgery: No Endocrine Surgery: No Eye Surgery: No Genitourinary Surgery: No Gynecologic Surgery: No Mastectomy: Yes (LUMPECTOMY) Neurologic Surgery: No Oral Surgery: No Thoracic Surgery: No Other Surgery: Yes (lumpectomy) Social History Alcohol Use: No Tobacco Use: No Substance Use: No Allergies-Medications (Allergen,Severity, Reaction): Coded Allergies: No Known Allergies (Unverified Allergy, Unknown, 06/13/17) Per information received from son and received from [facility], Psychiatry. Reported Meds & Prescriptions Reported Meds & Active Scripts Active Prednisone 10 Mg Tab 10 Mg PO BID Cozaar (Losartan Potassium) 50 Mg Tab 100 Mg PO 2 PO DAILY Norvasc (Amlodipine Besylate) 10 Mg Tab 10 Mg PO DAILY Risperdal M-Tab (Risperidone) 1 Mg Tab 1 Mg PO DAILY@,16 Lopressor (Metoprolol Tartrate) 50 Mg Tab 50 Mg PO BID Lipitor (Atorvastatin Calcium) 10 Mg Tab 10 Mg PO DAILY Aspirin EC (Aspirin) 81 Mg Tabdr 81 Mg PO DAILY Divalproex DR (Divalproex Sodium) 250 Mg Tabdr 250 Mg PO BID Namenda Xr (Memantine) 28 Mg Caper 28 Mg PO HS Tamoxifen (Tamoxifen Citrate) 20 Mg Tab 20 Mg PO DAILY Protonix (Pantoprazole Sodium) 20 Mg Tab 20 Mg PO DAILY Reported Vitamin D-400 (Cholecalciferol) 400 Unit Tab 400 Units PO DAILY Hydrocodone-Acetaminophen 5-325 mg Tab 1 Tab PO Q6H PRN Milk of Magnesia Liq (Magnesium Hydroxide) 400 Mg/5 Ml Susp 30 Ml PO DAILY PRN Review of Systems Except as stated in HPI: all other systems reviewed are Neg Physical Exam Narrative GENERAL: Well-developed well-nourished in no obvious distress SKIN: Focused skin assessment warm/dry. HEAD: Atraumatic. Normocephalic. EYES: Pupils equal and round. No scleral icterus. No injection or drainage. ENT: No nasal bleeding or discharge. Mucous membranes pink and moist. TMs clear bilaterally, oropharynx clear moist per NECK: Trachea midline. No JVD. CARDIOVASCULAR: Regular rate and rhythm. No murmur appreciated. RESPIRATORY: No accessory muscle use. Clear to auscultation. Breath sounds equal bilaterally. GASTROINTESTINAL: Abdomen soft, non-tender, nondistended. Hepatic and splenic margins not palpable. MUSCULOSKELETAL: No obvious deformities. No clubbing. No cyanosis. No edema. NEUROLOGICAL: Awake and alert. No obvious cranial nerve deficits. All commands in all 4 extremities, normal speech.. PSYCHIATRIC: Doesn't really confused, states she does not stay the night. Data Data Last Documented VS Vital Signs Date Time Temp Pulse Resp B/P (MAP) Pulse Ox O2 Delivery O2 Flow Rate FiO2 06/13/17 18:39 98.6 06/13/17 18:34 59 18 97 Room Air Orders Orders Complete Blood Count With Diff (06/13/17 18:17) Comprehensive Metabolic Panel (06/13/17 18:17) Urinalysis - C+S If Indicated (06/13/17 18:17) Psych Screen (06/13/17 18:17) Drug Screen, Random Urine (06/13/17 18:17) Alcohol (Ethanol) (06/13/17 18:17) Chest, Single Ap (06/13/17 ) Lorazepam (Ativan) (06/13/17 19:45) Labs Laboratory Tests Test 06/13/17 18:30 06/13/17 18:40 White Blood Count 9.8 TH/MM3 Red Blood Count 4.29 MIL/MM3 Hemoglobin 13.2 GM/DL Hematocrit 37.8 % Mean Corpuscular Volume 88.1 FL Mean Corpuscular Hemoglobin 30.8 PG Mean Corpuscular Hemoglobin Concent 35.0 % Red Cell Distribution Width 13.9 % Platelet Count 220 TH/MM3 Mean Platelet Volume 8.1 FL Neutrophils (%) (Auto) 84.0 % Lymphocytes (%) (Auto) 10.3 % Monocytes (%) (Auto) 5.0 % Eosinophils (%) (Auto) 0.2 % Basophils (%) (Auto) 0.5 % Neutrophils # (Auto) 8.2 TH/MM3 Lymphocytes # (Auto) 1.0 TH/MM3 Monocytes # (Auto) 0.5 TH/MM3 Eosinophils # (Auto) 0.0 TH/MM3 Basophils # (Auto) 0.0 TH/MM3 CBC Comment AUTO DIFF Differential Comment AUTO DIFF CONFIRMED Platelet Estimate NORMAL Platelet Morphology Comment NORMAL Blood Urea Nitrogen 19 MG/DL Creatinine 0.84 MG/DL Random Glucose 119 MG/DL Total Protein 7.6 GM/DL Albumin 3.7 GM/DL Calcium Level 8.2 MG/DL Alkaline Phosphatase 50 U/L Aspartate Amino Transf (AST/SGOT) 17 U/L Alanine Aminotransferase (ALT/SGPT) 24 U/L Total Bilirubin 0.5 MG/DL Sodium Level 132 MEQ/L Potassium Level 4.0 MEQ/L Chloride Level 97 MEQ/L Carbon Dioxide Level 26.3 MEQ/L Anion Gap 9 MEQ/L Estimat Glomerular Filtration Rate 65 ML/MIN Ethyl Alcohol Level LESS THAN 3 MG/DL Urine Color YELLOW Urine Turbidity CLEAR Urine pH 7.5 Urine Specific [place] 1.013 Urine Protein NEG mg/dL Urine Glucose (UA) NEG mg/dL Urine Ketones NEG mg/dL Urine Occult Blood NEG Urine Nitrite NEG Urine Bilirubin NEG Urine Urobilinogen 2.0 MG/DL Urine Leukocyte Esterase NEG Urine RBC 1 /hpf Urine WBC 1 /hpf Urine Squamous Epithelial Cells 1 /hpf Microscopic Urinalysis Comment CULT NOT INDICATED Urine Opiates Screen NEG Urine Barbiturates Screen NEG Urine Amphetamines Screen NEG Urine Benzodiazepines Screen NEG Urine Cocaine Screen NEG Urine Cannabinoids Screen NEG MDM Medical Decision Making Medical Screen Exam Complete: Yes Emergency Medical Condition: Yes Differential Diagnosis Poor social circumstance, dementia, urinary tract infection, pneumonia. Narrative Course Patient is an 82-year-old female presents emergency department from home after home health nurse could not keep her in the house, apparently has a history of schizophrenia and dementia. Recent admission to psychiatry for same. She is under Yousif act. Only complaint to me was a cough, chest x-ray negative, basic labs reassuring. She is medically stable for psychiatric evaluation. Diagnosis Primary Impression: Dementia Additional Impression: Schizophrenia, paranoid type Condition: Stable Luciano Eid MD Jun 13, 2017 19:36
[2017-06-13] MEDS ORDERED: LORazepam 1 MG TAB PO ONE (19:45)
--- NOTE | 2017-06-13 20:44 | RADRPT ---
EXAM DATE/TIME: 06/13/2017 19:57 [facility] COMPARISON: CHEST SINGLE AP, June 07, 2017, 22:22. INDICATIONS : Short of breath. Cough. MEDICAL HISTORY : None. SURGICAL HISTORY : None. ENCOUNTER: Initial ACUITY: 1 day PAIN SCORE: 0/10 LOCATION: Bilateral chest FINDINGS: The lungs are clear without infiltrate, nodule, or mass. There is no appreciable pleural effusion fo r technique. Heart and mediastinum are unremarkable. CONCLUSION: No acute cardiopulmonary disease. Jesusita Lopez MD on June 13, 2017 at 20:41 Board Certified Radiologist. This report was verified electronically.
[2017-06-14 03:30] VITALS: BP 172/88; PULSE 84; RESP 16; O2SAT 96
[2017-06-14 07:15] VITALS: BP 170/82; PULSE 82; RESP 16; O2SAT 98
[2017-06-14 13:00] VITALS: BP 156/97; PULSE 80; RESP 18; TEMP 98.2; O2SAT 98
[2017-06-14] MEDS ORDERED: MAGNESIUM HYDROXIDE SUSP 30 ML CUP PO PRN (13:45)
[2017-06-14] MEDS ORDERED: ALUMINUM/MAGNESIUM/SIMETH 30 ML CUP PO PRN (13:45)
[2017-06-14] MEDS ORDERED: LORazepam 0.5 MG TAB PO PRN (13:45)
[2017-06-14] MEDS ORDERED: LORazepam 2 MG/ML VIAL IM PRN (13:45)
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
[2017-06-14] MEDS ORDERED: cloNIDine HCL 0.1 MG TAB PO PRN (14:15)
[2017-06-14 16:23] VITALS: BP 161/88; PULSE 86; RESP 18; TEMP 99.2; O2SAT 97
[2017-06-14] MEDS: predniSONE 10 MG TAB PO SCH (20:39)
[2017-06-14] MEDS: MEMANTINE HCL 10 MG TAB PO SCH (20:39)
[2017-06-14] MEDS: DIVALPROEX SODIUM DELAYED RELEASE 250 MG TAB PO SCH (20:39)
[2017-06-14] MEDS: METOPROLOL TARTRATE 50 MG TAB PO SCH (20:39)
[2017-06-14] MEDS: LOSARTAN 50 MG TAB PO SCH (20:39)
[2017-06-14] MEDS: risperiDONE ODT 1 MG TAB PO SCH (20:42)
[2017-06-15 05:49] VITALS: BP 136/86; PULSE 53; RESP 18; TEMP 98.1; O2SAT 97
[2017-06-15 08:40] VITALS: PULSE 72
[2017-06-15] MEDS: PANTOPRAZOLE SOD 20 MG DELAYED RELEASE TAB PO SCH (08:40)
[2017-06-15] MEDS: ASPIRIN EC 81 MG TABEC PO SCH (08:41)
[2017-06-15] MEDS: risperiDONE ODT 1 MG TAB PO SCH ×2 (08:41→16:18)
[2017-06-15] MEDS: DIVALPROEX SODIUM DELAYED RELEASE 250 MG TAB PO SCH ×2 (08:41→21:17)
[2017-06-15] MEDS: ATORVASTATIN 10 MG TAB PO SCH (08:42)
[2017-06-15] MEDS: predniSONE 10 MG TAB PO SCH ×2 (08:42→21:17)
[2017-06-15] MEDS: MEMANTINE HCL 10 MG TAB PO SCH ×2 (08:42→21:17)
[2017-06-15] MEDS: TAMOXIFEN CITRATE 10 MG TAB PO SCH (08:42)
[2017-06-15] MEDS: METOPROLOL TARTRATE 50 MG TAB PO SCH ×2 (08:45→21:17)
[2017-06-15 10:13] LABS: AUTOMATED NEUTROPHIL # 6.9 TH/MM3 (1.8-7.7); BASOPHIL % 0.5 % (0.0-2.0); EOSINOPHIL # 0.1 TH/MM3 (0-0.4); EOSINOPHIL % 1.1 % (0.0-4.0); HEMATOCRIT 39.2 % (35.0-46.0); HEMOGLOBIN 13.4 GM/DL (11.6-15.3); LYMPH % 18.4 % (9.0-44.0); LYMPHOCYTE # 1.7 TH/MM3 (1.0-4.8); MEAN CELL VOLUME 87.6 FL (80.0-100.0); MEAN CORPUSCULAR HEMOGLOBIN 29.8 PG (27.0-34.0); MEAN CORPUSCULAR HGB CONC 34.1 % (32.0-36.0); MONO % 6.9 % (0.0-8.0); MONOCYTE # 0.7 TH/MM3 (0-0.9); NEUT % 73.1 % (16.0-70.0); PLATELET COUNT 239 TH/MM3 (150-450); RED BLOOD COUNT 4.48 MIL/MM3 (4.00-5.30); RED CELL DISTRIBUTION WIDTH 13.5 % (11.6-17.2); WHITE BLOOD COUNT 9.4 TH/MM3 (4.0-11.0)
[2017-06-15 10:48] LABS: ALBUMIN 3.6 GM/DL (3.4-5.0); AST (GOT) 12 U/L (15-37); BICARBONATE 29.7 MEQ/L (21.0-32.0); BLOOD UREA NITROGEN 15 MG/DL (7-18); CALCIUM 8.7 MG/DL (8.5-10.1); CHLORIDE 97 MEQ/L (98-107); CHOLESTEROL 108 MG/DL (120-200); CREATININE 0.96 MG/DL (0.50-1.00); GLOMERULAR FILTRATION RATE 56 ML/MIN (>89); GLUCOSE,RANDOM 121 MG/DL (74-106); SODIUM (NA) 137 MEQ/L (136-145)
[2017-06-15 11:17] LABS: ALKALINE PHOSPHATASE 54 U/L (45-117); ALT (GPT) 24 U/L (10-53); CHOLESTEROL/ HDL RATIO 1.95 RATIO; HDL CHOLESTEROL 55.3 MG/DL (40.0-60.0); LDL CHOLESTEROL 33 MG/DL (0-99); TOTAL BILIRUBIN ADULT 0.6 MG/DL (0.2-1.0); TOTAL PROTEIN 7.2 GM/DL (6.4-8.2); TRIGLYCERIDES 98 MG/DL (42-150)
[2017-06-15] MEDS ORDERED: MAGNESIUM HYDROXIDE SUSP 30 ML CUP PO PRN (11:30)
[2017-06-15] MEDS ORDERED: ACETAMINOPHEN 325 MG TAB PO PRN (11:30)
[2017-06-15] MEDS ORDERED: ALUMINUM/MAGNESIUM/SIMETH 30 ML CUP PO PRN (11:30)
--- NOTE | 2017-06-15 11:33 | HHI.PYPN ---
Subjective Remarks Patient initially seen by Dr. Santo Molina [employer] patient to my service Dr. Molina did initial psychiatric H&P. I agree with that. I had done the initial psychiatric template admitting orders. And reviewed the med reconciliation. Patient was discharge on 05/13 and brought back under Yousif act the same date. When she became out of control after placement. Becoming aggressive and uncontrollable. I recessed patient also at this time patient doesn't meet Yousif act criteria. Also feel she does not have capacity will ask for healthcare surrogate and guardian advocate. Patient seen by me the day room 2500 with nurse deysi gee. Did recognize me from yesterday her speech is rapid and pressured with a accent, she makes inappropriate comments calling me "funny" and "dear" she denies having a mental illness denies need for medication. States just wants to go home on a shared with her her prior hospitalization her behaviors in the community she became angry started yelling at me also. This time I do feel patient meets criteria for involuntary psychiatric hospitalization she doesn't have capacity. Considering her age her past mental health history and her vague cognitive deficits though she is oriented to person place and time I'll get neuropsych testing with her diagnosis and treatment. Will attempt to reach patient's family arrange for meeting on Sunday 06/18 Review of Systems Constitutional: DENIES: Diaphoretic episodes, Fatigue, Fever, Weight gain, Weight loss, Chills, Dizziness, Change in appetite, Night Sweats Endocrine: DENIES: Abnorml menstrual pattern, Heat/cold intolerance, Polydipsia , Polyuria, Polyphagia Eyes: DENIES: Blurred vision, Diplopia, Eye inflammation, Eye pain, Vision loss , Photosensitivity, Double Vision Ears, nose, mouth, throat: DENIES: Tinnitus, Hearing loss, Vertigo, Nasal discharge, Oral lesions, Throat pain, Hoarseness, Ear Pain, Running Nose, Epistaxis, Sinus Pain, Toothache, Odynophagia Respiratory: DENIES: Apneas, Cough, Snoring, Wheezing, Hemoptysis, Sputum production, Shortness of breath Cardiovascular: DENIES: Chest pain, Palpitations, Syncope, Dyspnea on Exertion , PND, Lower Extremity Edema, Orthopnea, Claudication Gastrointestinal: DENIES: Abdominal pain, Black stools, Bloody stools, Constipation, Diarrhea, Nausea, Vomiting, Difficulty Swallowing, Anorexia Genitourinary: DENIES: Abnormal vaginal bleeding, Dysmenorrhea, Dyspareunia, Sexual dysfunction, Urinary frequency, Urinary incontinence, Urgency, Hematuria , Dysuria, Nocturia, Vaginal discharge Musculoskeletal: DENIES: Joint pain, Muscle aches, Stiffness, Joint Swelling, Back pain, Neck pain Integumentary: DENIES: Abnormal pigmentation, Pruritus, Rash, Nail changes, Breast masses, Breast skin changes, Nipple discharge Hematologic/lymphatic: DENIES: Bruising, Lymphadenopathy Immunologic/allergic: DENIES: Eczema, Urticaria Neurologic: DENIES: Abnormal gait, Headache, Localized weakness, Paresthesias, Seizures, Speech Problems, Tremor, Poor Balance Psychiatric: COMPLAINS OF: Anxiety, Mood changes, Agitation Mental Status Examination Appearance: Disheveled Consciousness: Alert Orientation: Person, Place, Date/Time Motor Activity: Normal gait Speech: Hesitant Language: Adequate Fund of Knowledge: Adequate Attention and Concentration: Inadequate Memory: Impaired Mood: Other Affect: Labile Thought Process & Associations: Loose associations Thought Content: Bizarre thinking, Delusional Hallucination Type: None Delusion Type: None, Paranoid Suicidal Ideation: No Suicidal Plan: No Suicidal Intention: No Homicidal Ideation: No Homicidal Plan: No Homicidal Intention: No Insight: Poor Judgment: Impulsive Results Labs Test 06/15/17 08:38 White Blood Count 9.4 TH/MM3 Red Blood Count 4.48 MIL/MM3 Hemoglobin 13.4 GM/DL Hematocrit 39.2 % Mean Corpuscular Volume 87.6 FL Mean Corpuscular Hemoglobin 29.8 PG Mean Corpuscular Hemoglobin Concent 34.1 % Red Cell Distribution Width 13.5 % Platelet Count 239 TH/MM3 Mean Platelet Volume 8.0 FL Neutrophils (%) (Auto) 73.1 % Lymphocytes (%) (Auto) 18.4 % Monocytes (%) (Auto) 6.9 % Eosinophils (%) (Auto) 1.1 % Basophils (%) (Auto) 0.5 % Neutrophils # (Auto) 6.9 TH/MM3 Lymphocytes # (Auto) 1.7 TH/MM3 Monocytes # (Auto) 0.7 TH/MM3 Eosinophils # (Auto) 0.1 TH/MM3 Basophils # (Auto) 0.0 TH/MM3 CBC Comment DIFF FINAL Differential Comment Blood Urea Nitrogen 15 MG/DL Creatinine 0.96 MG/DL Random Glucose 121 MG/DL Total Protein 7.2 GM/DL Albumin 3.6 GM/DL Calcium Level 8.7 MG/DL Alkaline Phosphatase 54 U/L Aspartate Amino Transf (AST/SGOT) 12 U/L Alanine Aminotransferase (ALT/SGPT) 24 U/L Total Bilirubin 0.6 MG/DL Sodium Level 137 MEQ/L Potassium Level 3.8 MEQ/L Chloride Level 97 MEQ/L Carbon Dioxide Level 29.7 MEQ/L Anion Gap 10 MEQ/L Estimat Glomerular Filtration Rate 56 ML/MIN Triglycerides Level 98 MG/DL Cholesterol Level 108 MG/DL LDL Cholesterol 33 MG/DL HDL Cholesterol 55.3 MG/DL Cholesterol/HDL Ratio 1.95 RATIO Vitamin B12 Level 1113 PG/ML 25-Hydroxy Vitamin D Total 8.1 ng/ML Thyroid Stimulating Hormone 3rd Gen 1.320 uIU/ML Vitals/IOs Vital Signs Date Time Temp Pulse Resp B/P (MAP) Pulse Ox O2 Delivery O2 Flow Rate FiO2 06/15/17 08:40 72 06/15/17 05:49 98.1 18 136/86 (103) 97 06/14/17 13:00 Room Air Assessment & Plan Problem List: (1) Schizoaffective disorder, bipolar type ICD Codes: F25.0 - Schizoaffective disorder, bipolar type Assessment & Plan Estimated LOS: days this time patient doesn't meet Yousif criteria I'll do first opinion request second opinion. I feel she does not have capacity although health care surrogate and guardian advocate. Will continue medications per the med reconciliation. Neuropsych testing also. We'll attempt to arrange for a family meeting with her family on 06/18 Justification for Cont. Inpt. This time patient would decompensate in place to low level of care as evidenced by her recent readmission Discharge Planning To be determined Request HC Surrog/Guard Advoc?: Yes Elmo Castañeda MD Jun 15, 2017 11:33
[2017-06-15] MEDS: hydrOXYzine HCL 50 MG TAB PO PRN (12:49)
--- NOTE | 2017-06-15 14:05 | HHI.PR ---
Subjective Remarks in no acute distress. denies pain or sob. d/w the RN and no acute issues over night. Objective Vitals Vital Signs Date Time Temp Pulse Resp B/P (MAP) Pulse Ox O2 Delivery O2 Flow Rate FiO2 06/15/17 08:40 72 06/15/17 05:49 98.1 53 18 136/86 (103) 97 06/14/17 16:23 99.2 86 18 161/88 (112) 97 06/14/17 14:59 I/O 06/14/17 06/14/17 06/14/17 06/15/17 06/15/17 06/15/17 07:00 15:00 23:00 07:00 15:00 23:00 Intake Total 240 ml Balance 240 ml Intake Oral 240 ml # Voids 1 Result Diagram: 06/15/17 0838 06/15/17 0838 Imaging Last Impressions Chest X-Ray 06/13/17 0000 Signed Impressions: Service Date/Time: Tuesday, June 13, 2017 19:57 - CONCLUSION: No acute cardiopulmonary disease. Jesusita Lopez MD Objective Remarks GENERAL: This is a well-nourished, well-developed patient, in no apparent distress. CARDIOVASCULAR: Regular rate and regular rhythm without murmurs, gallops, or rubs. RESPIRATORY: Clear to auscultation. Breath sounds equal bilaterally. No wheezes , rales, or rhonchi. GASTROINTESTINAL: Abdomen soft, non-tender, nondistended. Normal, active bowel sounds MUSCULOSKELETAL: Extremities without clubbing, cyanosis, or edema. NEURO: awake and alert Medications and IVs Inpatient Medications Acetaminophen (Tylenol) 650 mg Q4H PRN PO Pain 1-5 or Temp >101F; Start at 11:30; Stop 06/15/17 at 11:49; Status DC Acetaminophen/ Hydrocodone Bitart ([place] 5-325 Mg) 1 tab Q6H PRN PO PAIN SCALE 6 TO 10; Start 06/14/17 at 13:45 Al Hydrox/Mg Hydrox/Simethicone (Mag-Al Plus Susp Liq) 30 ml Q6H PRN PO DYSPEPSIA; Start 06/15/17 at 11:30; Stop 06/15/17 at 11:49; Status DC Amlodipine Besylate (Norvasc) 10 mg DAILY PO Last administered on 06/15/17 08: 40; Start 06/15/17 at 09:00 Aspirin (Ecotrin Ec) 81 mg DAILY PO Last administered on 06/15/17 08:41; Start 06/15/17 at 09:00 Atorvastatin Calcium (Lipitor) 10 mg DAILY PO Last administered on 06/15/17at 08: 42; Start 06/15/17 at 09:00 Clonidine (Catapres) 0.1 mg Q8HR PRN PO SBP> OR = 180, DBP> OR = 100; Start 06/14/17 at 14:15 Divalproex Sodium (Depakote Dr) 250 mg BID PO Last administered on 06/15/17 08: 41; Start 06/14/17 at 21:00 Hydroxyzine HCl (Atarax) 50 mg Q6H PRN PO ANXIETY Last administered on at 12:49; Start 06/15/17 at 11:30 Lorazepam (Ativan Inj) 0.5 mg Q12H PRN IM MODERATE TO SEVERE ANXIETY; Start 06/14/17 at 13:45; Stop 06/15/17 at 11:51; Status DC Lorazepam (Ativan) 0.5 mg Q12H PRN PO MODERATE TO SEVERE ANXIETY; Start at 13:45; Stop 06/15/17 at 11:51; Status DC Losartan Potassium (Cozaar) 100 mg HS PO Last administered on 06/14/17at 20:39; Start 06/14/17 at 21:00 Magnesium Hydroxide (Milk Of Magnesia Liq) 30 ml DAILY PRN PO CONSTIPATION; Start 06/15/17 at 11:30; Stop 06/15/17 at 11:48; Status DC Memantine (Namenda) 10 mg BID PO Last administered on 06/15/17at 08:42; Start 06/14/17 at 21:00 Metoprolol Tartrate (Lopressor) 50 mg BID PO Last administered on 06/15/17 08: 45; Start 06/14/17 at 21:00 Pantoprazole Sodium (Protonix) 20 mg DAILY PO Last administered on 06/15/17at 08: 40; Start 06/15/17 at 09:00 Prednisone (Deltasone) 10 mg BID PO Last administered on 06/15/17at 08:42; Start 06/14/17 at 21:00 Risperidone (risperDAL M-TAB) 1 mg DAILY@09,16 PO Last administered on at 08:41; Start 06/14/17 at 16:00 Tamoxifen Citrate (Nolvadex) 20 mg DAILY PO Last administered on 06/15/17at 08:42 ; Start 06/15/17 at 09:00 A/P Assessment and Plan - dementia/ schizophrenia with aggressive behavior management per psych. -hypertension; continue amlodipine, losartan and metoprolol BP at times elevated- due to anxiety?- will continue to monitor and adjust the regimen as needed. -dyslipidemia; resumed statin -history of breast cancer- continue Tamoxifen Cadence Rangle MD Jun 15, 2017 14:04
[2017-06-15 17:27] LABS: HEMOGLOBIN A1C 5.5 % (4.3-6.0)
[2017-06-15 18:20] VITALS: BP 132/64; PULSE 67; RESP 18; TEMP 98; O2SAT 96
[2017-06-15] MEDS: LOSARTAN 50 MG TAB PO SCH (21:17)
[2017-06-16 06:07] VITALS: BP 148/85; PULSE 55; RESP 16; TEMP 97.1; O2SAT 94
[2017-06-16] MEDS: MEMANTINE HCL 10 MG TAB PO SCH ×2 (09:11→20:14)
[2017-06-16] MEDS: risperiDONE ODT 1 MG TAB PO SCH ×2 (09:11→16:00)
[2017-06-16] MEDS: ATORVASTATIN 10 MG TAB PO SCH (09:11)
[2017-06-16] MEDS: PANTOPRAZOLE SOD 20 MG DELAYED RELEASE TAB PO SCH (09:11)
[2017-06-16] MEDS: TAMOXIFEN CITRATE 10 MG TAB PO SCH (09:12)
[2017-06-16] MEDS: DIVALPROEX SODIUM DELAYED RELEASE 250 MG TAB PO SCH ×2 (09:12→20:14)
[2017-06-16] MEDS: METOPROLOL TARTRATE 50 MG TAB PO SCH ×2 (09:12→20:14)
[2017-06-16] MEDS: predniSONE 10 MG TAB PO SCH ×2 (09:12→20:14)
[2017-06-16] MEDS: ASPIRIN EC 81 MG TABEC PO SCH (09:12)
--- NOTE | 2017-06-16 13:40 | HHI.PR ---
Subjective Remarks in no acute disress. denies pain. no new complaints. BP trend noted. Objective Vitals Vital Signs Date Time Temp Pulse Resp B/P (MAP) Pulse Ox O2 Delivery O2 Flow Rate FiO2 06/16/17 06:07 97.1 55 16 148/85 (106) 94 06/15/17 18:20 98.0 67 18 132/64 (86) 96 I/O 06/15/17 06/15/17 06/15/17 06/16/17 06/16/17 06/16/17 07:00 15:00 23:00 07:00 15:00 23:00 Intake Total 360 ml 0 ml Balance 360 ml 0 ml Intake Oral 360 ml 0 ml # Voids 1 1 1 Result Diagram: 06/15/17 0838 06/15/17 0838 Imaging Last Impressions Chest X-Ray 06/13/17 0000 Signed Impressions: Service Date/Time: Tuesday, June 13, 2017 19:57 - CONCLUSION: No acute cardiopulmonary disease. Jesusita Lopez MD Objective Remarks GENERAL: This is a well-nourished, well-developed patient, in no apparent distress. CARDIOVASCULAR: Regular rate and regular rhythm without murmurs, gallops, or rubs. RESPIRATORY: Clear to auscultation. Breath sounds equal bilaterally. No wheezes , rales, or rhonchi. GASTROINTESTINAL: Abdomen soft, non-tender, nondistended. Normal, active bowel sounds MUSCULOSKELETAL: Extremities without clubbing, cyanosis, or edema. NEURO: awake and alert Medications and IVs Inpatient Medications Acetaminophen (Tylenol) 650 mg Q4H PRN PO Pain 1-5 or Temp >101F; Start at 11:30; Stop 06/15/17 at 11:49; Status DC Acetaminophen/ Hydrocodone Bitart ([place] 5-325 Mg) 1 tab Q6H PRN PO PAIN SCALE 6 TO 10; Start 06/14/17 at 13:45 Al Hydrox/Mg Hydrox/Simethicone (Mag-Al Plus Susp Liq) 30 ml Q6H PRN PO DYSPEPSIA; Start 06/15/17 at 11:30; Stop 06/15/17 at 11:49; Status DC Amlodipine Besylate (Norvasc) 10 mg DAILY PO Last administered on 06/16/17at 09: 00; Start 06/15/17 at 09:00 Aspirin (Ecotrin Ec) 81 mg DAILY PO Last administered on 06/16/17 09:12; Start 06/15/17 at 09:00 Atorvastatin Calcium (Lipitor) 10 mg DAILY PO Last administered on 06/16/17at 09: 11; Start 06/15/17 at 09:00 Clonidine (Catapres) 0.1 mg Q8HR PRN PO SBP> OR = 180, DBP> OR = 100; Start 06/14/17 at 14:15 Divalproex Sodium (Depakote Dr) 250 mg BID PO Last administered on 06/16/17 09: 12; Start 06/14/17 at 21:00 Hydroxyzine HCl (Atarax) 50 mg Q6H PRN PO ANXIETY Last administered on at 12:49; Start 06/15/17 at 11:30 Lorazepam (Ativan Inj) 0.5 mg Q12H PRN IM MODERATE TO SEVERE ANXIETY; Start 06/14/17 at 13:45; Stop 06/15/17 at 11:51; Status DC Lorazepam (Ativan) 0.5 mg Q12H PRN PO MODERATE TO SEVERE ANXIETY; Start at 13:45; Stop 06/15/17 at 11:51; Status DC Losartan Potassium (Cozaar) 100 mg HS PO Last administered on 06/15/17at 21:17; Start 06/14/17 at 21:00 Magnesium Hydroxide (Milk Of Magnesia Liq) 30 ml DAILY PRN PO CONSTIPATION; Start 06/15/17 at 11:30; Stop 06/15/17 at 11:48; Status DC Memantine (Namenda) 10 mg BID PO Last administered on 06/16/17at 09:11; Start 06/14/17 at 21:00 Metoprolol Tartrate (Lopressor) 50 mg BID PO Last administered on 06/16/17 09: 12; Start 06/14/17 at 21:00 Pantoprazole Sodium (Protonix) 20 mg DAILY PO Last administered on 06/16/17at 09: 11; Start 06/15/17 at 09:00 Prednisone (Deltasone) 10 mg BID PO Last administered on 06/16/17at 09:12; Start 1/4/18 at 21:00 Risperidone (risperDAL M-TAB) 1 mg DAILY@09,16 PO Last administered on at 09:11; Start 06/14/17 at 16:00 Tamoxifen Citrate (Nolvadex) 20 mg DAILY PO Last administered on 06/16/17at 09:12 ; Start 06/15/17 at 09:00 A/P Assessment and Plan - dementia/ schizophrenia with aggressive behavior management per psych. -hypertension; improved- continue amlodipine, losartan and metoprolol f/u as outpatient. -dyslipidemia; resumed statin -history of breast cancer- continue Tamoxifen -vitamin d deficiency- will replace; f/u as outpatient. [facility] will sign off and see her as needed. Cadence Rangel MD Jun 16, 2017 13:40
--- NOTE | 2017-06-16 15:58 | HHI.PYPN ---
Subjective Remarks This is a request for second opinion. Admission note was reviewed and I agree with the contents. Patient was seen and case was discussed with nursing. Patient remains acutely psychotic. She denies hallucinations but is likely responding to internal stimuli. Per nursing she is attention seeking and intrusive. Perseverative. Compliant with medications and tolerating them well. Mental Status Examination Appearance: Disheveled Consciousness: Alert Orientation: Person, Place, Date/Time Motor Activity: Normal gait Speech: Hesitant Language: Adequate Fund of Knowledge: Adequate Attention and Concentration: Inadequate Memory: Impaired Mood: Other Affect: Labile Thought Process & Associations: Loose associations Thought Content: Bizarre thinking, Delusional Hallucination Type: None Delusion Type: None, Paranoid Suicidal Ideation: No Suicidal Plan: No Suicidal Intention: No Homicidal Ideation: No Homicidal Plan: No Homicidal Intention: No Insight: Poor Judgment: Impulsive Results Vitals/IOs Vital Signs Date Time Temp Pulse Resp B/P (MAP) Pulse Ox O2 Delivery O2 Flow Rate FiO2 06/16/17 06:07 97.1 55 16 148/85 (106) 94 06/14/17 13:00 Room Air Intake and Output 06/16/17 06/16/17 06/17/17 08:00 16:00 00:00 Intake Total 0 ml Balance 0 ml Assessment & Plan Problem List: (1) Schizoaffective disorder, bipolar type ICD Codes: F25.0 - Schizoaffective disorder, bipolar type Assessment & Plan I agree with the first opinion to continue petition. Criteria include acute psychosis Justification for Cont. Inpt. Patient will decompensate in a less restrictive setting Request HC Surrog/Guard Advoc?: Yes Man Morgan DO Jun 16, 2017 15:58
[2017-06-16] MEDS: ACETAMINOPHEN 325 MG TAB PO PRN (17:16)
[2017-06-16 18:09] VITALS: BP 137/77; PULSE 63; RESP 18; TEMP 98.4; O2SAT 97
[2017-06-16] MEDS: LOSARTAN 50 MG TAB PO SCH (20:14)
[2017-06-17] MEDS: hydrOXYzine HCL 50 MG TAB PO PRN ×4 (01:08→19:59)
[2017-06-17 06:05] VITALS: BP 125/89; PULSE 53; RESP 17; TEMP 98.2; O2SAT 97
[2017-06-17 07:58] VITALS: PULSE 62
[2017-06-17] MEDS: METOPROLOL TARTRATE 50 MG TAB PO SCH ×2 (08:00→20:00)
[2017-06-17] MEDS: TAMOXIFEN CITRATE 10 MG TAB PO SCH (08:00)
[2017-06-17] MEDS: CHOLECALCIFEROL (VIT D3) 1000 UNIT TAB PO SCH (08:00)
[2017-06-17] MEDS: ATORVASTATIN 10 MG TAB PO SCH (08:00)
[2017-06-17] MEDS: DIVALPROEX SODIUM DELAYED RELEASE 250 MG TAB PO SCH ×2 (08:00→19:59)
[2017-06-17] MEDS: PANTOPRAZOLE SOD 20 MG DELAYED RELEASE TAB PO SCH (08:01)
[2017-06-17] MEDS: risperiDONE ODT 1 MG TAB PO SCH ×2 (08:01→16:00)
[2017-06-17] MEDS: MEMANTINE HCL 10 MG TAB PO SCH ×2 (08:01→19:58)
[2017-06-17] MEDS: ASPIRIN EC 81 MG TABEC PO SCH (08:01)
[2017-06-17] MEDS: predniSONE 10 MG TAB PO SCH ×2 (08:01→20:00)
[2017-06-17] MEDS: ACETAMINOPHEN/HYDROcodone 325 MG/5 MG TAB PO PRN ×2 (14:46→22:06)
--- NOTE | 2017-06-17 16:28 | HHI.PYPN ---
Subjective Remarks Patient was seen and case discussed with nursing. Today patient is quite perseverative and delusional. She is paranoid that her and son are trying to kill her and that her shooting. She is pressured and intense during the interview, sleeping poorly. Mental Status Examination Appearance: Disheveled Consciousness: Alert Orientation: Person, Place, Date/Time Motor Activity: Normal gait Speech: Hesitant Language: Adequate Fund of Knowledge: Adequate Attention and Concentration: Inadequate Memory: Impaired Mood: Other Affect: Labile Thought Process & Associations: Loose associations Thought Content: Bizarre thinking, Delusional Hallucination Type: None Delusion Type: None, Paranoid Suicidal Ideation: No Suicidal Plan: No Suicidal Intention: No Homicidal Ideation: No Homicidal Plan: No Homicidal Intention: No Insight: Poor Judgment: Impulsive Results Vitals/IOs Vital Signs Date Time Temp Pulse Resp B/P (MAP) Pulse Ox O2 Delivery O2 Flow Rate FiO2 06/17/17 07:58 62 06/17/17 06:05 98.2 17 125/89 (101) 97 06/14/17 13:00 Room Air Intake and Output 06/17/17 06/17/17 06/18/17 08:00 16:00 00:00 Intake Total 360 ml 240 ml Balance 360 ml 240 ml Assessment & Plan Problem List: (1) Schizoaffective disorder, bipolar type ICD Codes: F25.0 - Schizoaffective disorder, bipolar type Assessment & Plan Consider increasing Depakote and starting an antipsychotic Justification for Cont. Inpt. Patient will decompensate in a less restrictive setting Request HC Surrog/Guard Advoc?: Yes Man Morgan DO Jun 17, 2017 16:28
[2017-06-17 17:55] VITALS: BP 151/68; PULSE 75; RESP 17; TEMP 97.8; O2SAT 96
[2017-06-17] MEDS: LOSARTAN 50 MG TAB PO SCH (19:58)
[2017-06-18 05:22] VITALS: BP 178/86; PULSE 57; RESP 16; TEMP 97.7; O2SAT 98
[2017-06-18] MEDS: CHOLECALCIFEROL (VIT D3) 1000 UNIT TAB PO SCH (09:00)
[2017-06-18] MEDS: predniSONE 10 MG TAB PO SCH ×2 (09:25→21:18)
[2017-06-18] MEDS: TAMOXIFEN CITRATE 10 MG TAB PO SCH (09:25)
[2017-06-18] MEDS: ASPIRIN EC 81 MG TABEC PO SCH (09:25)
[2017-06-18] MEDS: DIVALPROEX SODIUM DELAYED RELEASE 250 MG TAB PO SCH ×2 (09:25→21:18)
[2017-06-18] MEDS: risperiDONE ODT 1 MG TAB PO SCH ×3 (09:25→18:08)
[2017-06-18] MEDS: PANTOPRAZOLE SOD 20 MG DELAYED RELEASE TAB PO SCH (09:26)
[2017-06-18] MEDS: ATORVASTATIN 10 MG TAB PO SCH (09:26)
[2017-06-18] MEDS: MEMANTINE HCL 10 MG TAB PO SCH ×2 (09:26→21:18)
[2017-06-18] MEDS: METOPROLOL TARTRATE 50 MG TAB PO SCH ×2 (09:26→21:17)
--- NOTE | 2017-06-18 10:16 | PD.TTN ---
Patient Problems 1. Discharge planning 2. Medication compliance 3. Knowledge deficit 4. Lack of coping skills Progress Toward Goals Provider Present: Dr. Jorge Luis Castañeda Provider Input: 06/18/2017 - Dr. Castañeda requested to have a family meeting to discuss placement, medication management, and plan for discharge. Psychiatric Counselors Present: BRANDYN Mayen Psych Therapist Input: 06/18/2017 - Counselor will contact patient's son to arrange for a family meeting. Group Spec/RT/OT/QUICK Present: Canelo El OT Group Spec/RT/OT/QUICK Input: 06/18/2017 - Patient is not participating in group activities. Discharge Plan SMA Patient will require placement at an [facility], however, she refused to go into the [facility] following her last discharge and reports that she "wants to go home with her son." Documentation Scribe: BRANDYN Mayen Date Resolved: Jun 18, 2017 Janae Bunn Jun 18, 2017 10:16
--- NOTE | 2017-06-18 11:14 | HHI.PYPN ---
Subjective Remarks Patient seen in the [facility] with nurse Akers, chart reviewed, patient compliant medications. Patient continues markedly confused paranoid and delusional focusing on her and son that they may be plotting against her. For now will increase Respinol to 1 mg 3 times a day Review of Systems Except as stated in HPI: all other systems reviewed are Neg Mental Status Examination Appearance: Disheveled Consciousness: Alert Orientation: Person, Place, Date/Time Motor Activity: Normal gait Speech: Hesitant Language: Adequate Fund of Knowledge: Adequate Attention and Concentration: Inadequate Memory: Impaired Mood: Other Affect: Labile Thought Process & Associations: Loose associations Thought Content: Bizarre thinking, Delusional Hallucination Type: None Delusion Type: None, Paranoid Suicidal Ideation: No Suicidal Plan: No Suicidal Intention: No Homicidal Ideation: No Homicidal Plan: No Homicidal Intention: No Insight: Poor Judgment: Impulsive Results Vitals/IOs Vital Signs Date Time Temp Pulse Resp B/P (MAP) Pulse Ox O2 Delivery O2 Flow Rate FiO2 06/18/17 06:26 18 06/18/17 05:22 97.7 57 178/86 (116) 98 06/14/17 13:00 Room Air Intake and Output 06/18/17 06/18/17 06/19/17 08:00 16:00 00:00 Intake Total 240 ml Balance 240 ml Assessment & Plan Problem List: (1) Schizoaffective disorder, bipolar type ICD Codes: F25.0 - Schizoaffective disorder, bipolar type Assessment & Plan Estimated LOS: days patient remains confused delusional and paranoid, continues to focus on family. See medication adjustment above she states she wants her back to her "home " perhaps with her son Justification for Cont. Inpt. At this time patient will decompensate if not place an appropriate level of care Discharge Planning Patient may become problematic due to patient's reluctance Request HC Surrog/Guard Advoc?: Yes Elmo Castañeda MD Jun 18, 2017 11:14
[2017-06-18 18:00] VITALS: BP 126/64; PULSE 70; RESP 16; TEMP 98; O2SAT 96
[2017-06-18] MEDS: LOSARTAN 50 MG TAB PO SCH (21:18)
[2017-06-19 05:54] VITALS: BP 129/97; PULSE 54; RESP 18; TEMP 97.4
[2017-06-19 07:31] VITALS: BP 129/67; PULSE 54; RESP 18; TEMP 97.4; O2SAT 97
[2017-06-19] MEDS: TAMOXIFEN CITRATE 10 MG TAB PO SCH (08:23)
[2017-06-19] MEDS: predniSONE 10 MG TAB PO SCH ×2 (08:23→20:05)
[2017-06-19] MEDS: MEMANTINE HCL 10 MG TAB PO SCH ×2 (08:23→20:05)
[2017-06-19] MEDS: DIVALPROEX SODIUM DELAYED RELEASE 250 MG TAB PO SCH ×2 (08:23→20:05)
[2017-06-19] MEDS: METOPROLOL TARTRATE 50 MG TAB PO SCH ×2 (08:24→20:05)
[2017-06-19] MEDS: risperiDONE ODT 1 MG TAB PO SCH ×3 (08:24→18:49)
[2017-06-19] MEDS: ATORVASTATIN 10 MG TAB PO SCH (08:24)
[2017-06-19] MEDS: PANTOPRAZOLE SOD 20 MG DELAYED RELEASE TAB PO SCH (08:24)
[2017-06-19] MEDS: ASPIRIN EC 81 MG TABEC PO SCH (08:24)
[2017-06-19] MEDS: CHOLECALCIFEROL (VIT D3) 1000 UNIT TAB PO SCH (09:00)
--- NOTE | 2017-06-19 09:49 | HHI.PYPN ---
Subjective Remarks Patient seen in day room with the room nurse Oswald, chart reviewed, patient compliant medication. Patient somewhat calmer today though still focuses on wanting to return to her home where she would be living with her son. When I suggested perhaps alternative living situation she became quite angry saying that that was her house about her son's house. Counselor has attempted to reduce son we need to arrange for family meeting to discuss patient's behavior and possible placement issues will check Depakote blood level over in a.m. Review of Systems Except as stated in HPI: all other systems reviewed are Neg Mental Status Examination Appearance: Disheveled Consciousness: Alert Orientation: Person, Place, Date/Time Motor Activity: Normal gait Speech: Hesitant Language: Adequate Fund of Knowledge: Adequate Attention and Concentration: Inadequate Memory: Impaired Mood: Other Affect: Labile Thought Process & Associations: Loose associations Thought Content: Bizarre thinking, Delusional Hallucination Type: None Delusion Type: None, Paranoid Suicidal Ideation: No Suicidal Plan: No Suicidal Intention: No Homicidal Ideation: No Homicidal Plan: No Homicidal Intention: No Insight: Poor Judgment: Impulsive Results Vitals/IOs Vital Signs Date Time Temp Pulse Resp B/P (MAP) Pulse Ox O2 Delivery O2 Flow Rate FiO2 06/19/17 07:31 97.4 54 18 129/67 (87) 97 Intake and Output 06/19/17 06/19/17 06/19/17 07:59 15:59 23:59 Intake Total 240 ml Balance 240 ml Assessment & Plan Problem List: (1) Schizoaffective disorder, bipolar type ICD Codes: F25.0 - Schizoaffective disorder, bipolar type Assessment & Plan Estimated LOS: days patient continues paranoid and somewhat delusional. A lot of irritable. Showing no signs of insight into placement issues. We'll attempt to still reach patient is some Justification for Cont. Inpt. At this time patient will decompensate if placed in a lower level of care Discharge Planning Need to discuss this with patient's family Request HC Surrog/Guard Advoc?: Yes Elmo Castañeda MD Jun 19, 2017 09:49
[2017-06-19 17:14] VITALS: BP 106/64; PULSE 59; RESP 18; TEMP 97.9; O2SAT 97
[2017-06-19] MEDS: LOSARTAN 50 MG TAB PO SCH (20:05)
[2017-06-19] MEDS: hydrOXYzine HCL 50 MG TAB PO PRN (20:05)
[2017-06-20 05:59] VITALS: BP 175/78; PULSE 56; RESP 18; TEMP 98.4; O2SAT 99
[2017-06-20] MEDS: DIVALPROEX SODIUM DELAYED RELEASE 250 MG TAB PO SCH ×2 (08:53→21:04)
[2017-06-20] MEDS: METOPROLOL TARTRATE 50 MG TAB PO SCH ×2 (08:53→21:03)
[2017-06-20] MEDS: PANTOPRAZOLE SOD 20 MG DELAYED RELEASE TAB PO SCH (08:53)
[2017-06-20] MEDS: ASPIRIN EC 81 MG TABEC PO SCH (08:53)
[2017-06-20] MEDS: predniSONE 10 MG TAB PO SCH ×2 (08:53→21:03)
[2017-06-20] MEDS: ATORVASTATIN 10 MG TAB PO SCH (08:53)
[2017-06-20] MEDS: CHOLECALCIFEROL (VIT D3) 1000 UNIT TAB PO SCH (08:53)
[2017-06-20] MEDS: MEMANTINE HCL 10 MG TAB PO SCH ×2 (08:53→21:00)
[2017-06-20] MEDS: TAMOXIFEN CITRATE 10 MG TAB PO SCH (08:54)
[2017-06-20] MEDS: risperiDONE ODT 1 MG TAB PO SCH ×3 (09:42→17:27)
--- NOTE | 2017-06-20 11:13 | HHI.PYPN ---
Subjective Remarks Patient seen in day room with nurse Jing, chart review, patient compliant medications. Patient continues fairly well oriented, though showing no insight into her disease. She is still somewhat intrusive and entitled. States she wants to go home. She gives mixed feelings related to her son's role in her life. Patient scheduled for [facility] tomorrow Review of Systems Except as stated in HPI: all other systems reviewed are Neg Mental Status Examination Appearance: Disheveled Consciousness: Alert Orientation: Person, Place, Date/Time Motor Activity: Normal gait Speech: Hesitant Language: Adequate Fund of Knowledge: Adequate Attention and Concentration: Inadequate Memory: Impaired Mood: Other Affect: Labile Thought Process & Associations: Loose associations Thought Content: Bizarre thinking, Delusional Hallucination Type: None Delusion Type: None, Paranoid Suicidal Ideation: No Suicidal Plan: No Suicidal Intention: No Homicidal Ideation: No Homicidal Plan: No Homicidal Intention: No Insight: Poor Judgment: Impulsive Results Vitals/IOs Vital Signs Date Time Temp Pulse Resp B/P (MAP) Pulse Ox O2 Delivery O2 Flow Rate FiO2 06/20/17 05:59 98.4 56 18 175/78 (110) 99 Intake and Output 06/20/17 06/20/17 06/21/17 08:00 16:00 00:00 Intake Total 240 ml Output Total 1 ml Balance 239 ml Assessment & Plan Problem List: (1) Schizoaffective disorder, bipolar type ICD Codes: F25.0 - Schizoaffective disorder, bipolar type Assessment & Plan Estimated LOS: days patient continues delusional, somewhat irritable and entitled, compliant medications. Patient scheduled for [facility] tomorrow Justification for Cont. Inpt. At this time patient will decompensate if place to the lower level of care Discharge Planning Need to confer further with patient's son related to placement issues Request HC Surrog/Guard Advoc?: Yes Elmo Castñaeda MD Jun 20, 2017 11:13
[2017-06-20 18:00] VITALS: BP 140/65; PULSE 63; RESP 18; TEMP 98.1; O2SAT 99
[2017-06-20] MEDS: ACETAMINOPHEN/HYDROcodone 325 MG/5 MG TAB PO PRN (18:48)
[2017-06-20] MEDS: hydrOXYzine HCL 50 MG TAB PO PRN (21:02)
[2017-06-20] MEDS: LOSARTAN 50 MG TAB PO SCH (21:02)
[2017-06-21 05:42] VITALS: BP 134/65; PULSE 94; RESP 16; TEMP 98.2; O2SAT 95
[2017-06-21] MEDS: predniSONE 10 MG TAB PO SCH ×2 (08:41→20:17)
[2017-06-21] MEDS: CHOLECALCIFEROL (VIT D3) 1000 UNIT TAB PO SCH (08:41)
[2017-06-21] MEDS: TAMOXIFEN CITRATE 10 MG TAB PO SCH (08:41)
[2017-06-21] MEDS: DIVALPROEX SODIUM DELAYED RELEASE 250 MG TAB PO SCH ×2 (08:41→20:16)
[2017-06-21] MEDS: MEMANTINE HCL 10 MG TAB PO SCH ×2 (08:42→20:17)
[2017-06-21] MEDS: ATORVASTATIN 10 MG TAB PO SCH (08:42)
[2017-06-21] MEDS: PANTOPRAZOLE SOD 20 MG DELAYED RELEASE TAB PO SCH (08:42)
[2017-06-21] MEDS: METOPROLOL TARTRATE 50 MG TAB PO SCH ×2 (08:42→20:17)
[2017-06-21] MEDS: ASPIRIN EC 81 MG TABEC PO SCH (08:42)
[2017-06-21] MEDS: risperiDONE ODT 1 MG TAB PO SCH ×3 (08:42→17:11)
[2017-06-21] MEDS: hydrOXYzine HCL 50 MG TAB PO PRN (10:19)
[2017-06-21] MEDS: ACETAMINOPHEN/HYDROcodone 325 MG/5 MG TAB PO PRN ×2 (10:19→17:34)
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
[2017-06-21 16:44] VITALS: BP 121/73; PULSE 67; RESP 17; TEMP 97.3; O2SAT 95
[2017-06-21] MEDS: ACETAMINOPHEN 325 MG TAB PO PRN (20:17)
[2017-06-21] MEDS: LOSARTAN 50 MG TAB PO SCH (20:17)
[2017-06-22 06:17] VITALS: BP 132/61; PULSE 60; RESP 16; TEMP 97.9; O2SAT 96
[2017-06-22] MEDS: DIVALPROEX SODIUM DELAYED RELEASE 250 MG TAB PO SCH ×2 (08:32→20:13)
[2017-06-22] MEDS: METOPROLOL TARTRATE 50 MG TAB PO SCH ×2 (08:32→20:13)
[2017-06-22] MEDS: ASPIRIN EC 81 MG TABEC PO SCH (08:32)
[2017-06-22] MEDS: CHOLECALCIFEROL (VIT D3) 1000 UNIT TAB PO SCH (08:32)
[2017-06-22] MEDS: ATORVASTATIN 10 MG TAB PO SCH (08:33)
[2017-06-22] MEDS: risperiDONE ODT 1 MG TAB PO SCH (08:33)
[2017-06-22] MEDS: TAMOXIFEN CITRATE 10 MG TAB PO SCH (08:33)
[2017-06-22] MEDS: predniSONE 10 MG TAB PO SCH ×2 (08:33→20:13)
[2017-06-22] MEDS: MEMANTINE HCL 10 MG TAB PO SCH ×2 (08:33→20:12)
[2017-06-22] MEDS: PANTOPRAZOLE SOD 20 MG DELAYED RELEASE TAB PO SCH (08:33)
[2017-06-22] MEDS: ACETAMINOPHEN/HYDROcodone 325 MG/5 MG TAB PO PRN (08:47)
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
[2017-06-22] MEDS: LOSARTAN 50 MG TAB PO SCH (20:13)
[2017-06-22] MEDS: risperiDONE ODT 2 MG TAB PO SCH (20:13)
[2017-06-23 06:44] VITALS: BP 140/61; PULSE 57; RESP 18; TEMP 98.2; O2SAT 94
[2017-06-23] MEDS: ASPIRIN EC 81 MG TABEC PO SCH (09:05)
[2017-06-23] MEDS: TAMOXIFEN CITRATE 10 MG TAB PO SCH (09:06)
[2017-06-23] MEDS: risperiDONE ODT 2 MG TAB PO SCH ×2 (09:06→20:29)
[2017-06-23] MEDS: MEMANTINE HCL 10 MG TAB PO SCH ×2 (09:06→20:28)
[2017-06-23] MEDS: DIVALPROEX SODIUM DELAYED RELEASE 250 MG TAB PO SCH ×2 (09:06→20:29)
[2017-06-23] MEDS: CHOLECALCIFEROL (VIT D3) 1000 UNIT TAB PO SCH (09:07)
[2017-06-23] MEDS: PANTOPRAZOLE SOD 20 MG DELAYED RELEASE TAB PO SCH (09:07)
[2017-06-23] MEDS: ATORVASTATIN 10 MG TAB PO SCH (09:07)
[2017-06-23] MEDS: METOPROLOL TARTRATE 50 MG TAB PO SCH ×2 (09:07→20:29)
[2017-06-23] MEDS: predniSONE 10 MG TAB PO SCH ×2 (09:07→20:30)
[2017-06-23] MEDS: ACETAMINOPHEN 325 MG TAB PO PRN (09:37)
--- NOTE | 2017-06-23 11:01 | HHI.PYPN ---
Subjective Remarks Pt seen and discussed with support staff. She has been cooperative and compliant with treatment. No aggression or agitation. No medication side effects. No SI/HI Mental Status Examination Appearance: Appropriate Consciousness: Alert Orientation: Person, Place, Date/Time Motor Activity: Normal gait Speech: Hesitant Language: Adequate Fund of Knowledge: Adequate Attention and Concentration: Inadequate Memory: Impaired Mood: Appropriate, Other Affect: Appropriate Thought Process & Associations: Loose associations Thought Content: Delusional Hallucination Type: None Delusion Type: None, Paranoid Suicidal Ideation: No Suicidal Plan: No Suicidal Intention: No Homicidal Ideation: No Homicidal Plan: No Homicidal Intention: No Insight: Poor Judgment: Impulsive Results Vitals/IOs Vital Signs Date Time Temp Pulse Resp B/P (MAP) Pulse Ox O2 Delivery O2 Flow Rate FiO2 06/23/17 06:44 98.2 57 18 140/61 (87) 94 Intake and Output 06/23/17 06/23/17 06/24/17 08:00 16:00 00:00 Intake Total 240 ml Balance 240 ml Assessment & Plan Problem List: (1) Schizoaffective disorder, bipolar type ICD Codes: F25.0 - Schizoaffective disorder, bipolar type Assessment & Plan Continue current tx plan. Continue discharge planning. Estimated LOS: days Justification for Cont. Inpt. risk of decompensation Request HC Surrog/Guard Advoc?: Yes Veronique Stephens MD Jun 23, 2017 11:01
[2017-06-23 18:00] VITALS: BP 133/68; PULSE 57; RESP 16; TEMP 98.6; O2SAT 97
[2017-06-23] MEDS: LOSARTAN 50 MG TAB PO SCH (20:29)
[2017-06-23] MEDS: hydrOXYzine HCL 50 MG TAB PO PRN (21:18)
[2017-06-24 05:00] VITALS: BP 140/68; PULSE 53; RESP 18; TEMP 98; O2SAT 97
[2017-06-24] MEDS: TAMOXIFEN CITRATE 10 MG TAB PO SCH (08:32)
[2017-06-24] MEDS: risperiDONE ODT 2 MG TAB PO SCH ×2 (08:32→20:45)
[2017-06-24] MEDS: MEMANTINE HCL 10 MG TAB PO SCH ×2 (08:34→20:45)
[2017-06-24] MEDS: CHOLECALCIFEROL (VIT D3) 1000 UNIT TAB PO SCH (08:34)
[2017-06-24] MEDS: PANTOPRAZOLE SOD 20 MG DELAYED RELEASE TAB PO SCH (08:34)
[2017-06-24] MEDS: predniSONE 10 MG TAB PO SCH ×2 (08:34→20:45)
[2017-06-24] MEDS: ATORVASTATIN 10 MG TAB PO SCH (08:34)
[2017-06-24] MEDS: ASPIRIN EC 81 MG TABEC PO SCH (08:34)
[2017-06-24] MEDS: DIVALPROEX SODIUM DELAYED RELEASE 250 MG TAB PO SCH ×2 (08:34→20:45)
[2017-06-24] MEDS: METOPROLOL TARTRATE 50 MG TAB PO SCH ×2 (08:39→20:45)
[2017-06-24] MEDS: ACETAMINOPHEN/HYDROcodone 325 MG/5 MG TAB PO PRN (09:20)
[2017-06-24] MEDS: hydrOXYzine HCL 50 MG TAB PO PRN ×2 (13:41→20:45)
--- NOTE | 2017-06-24 16:32 | HHI.PYPN ---
Subjective Remarks Pt seen and discussed with staff. She has been compliant with medications and care. She had an outburst with anxiety earlier today but calmed with hydroxyzine. No aggression or agitation. She c/o of poor sleep and she only 4 hours last night per staffing associate. Mental Status Examination Appearance: Appropriate Consciousness: Alert Orientation: Person, Place, Date/Time Motor Activity: Normal gait Speech: Hesitant Language: Adequate Fund of Knowledge: Adequate Attention and Concentration: Inadequate Memory: Impaired Mood: Appropriate, Other Affect: Appropriate Thought Process & Associations: Loose associations Thought Content: Delusional Hallucination Type: None Delusion Type: None, Paranoid Suicidal Ideation: No Suicidal Plan: No Suicidal Intention: No Homicidal Ideation: No Homicidal Plan: No Homicidal Intention: No Insight: Poor Judgment: Impulsive Results Vitals/IOs Vital Signs Date Time Temp Pulse Resp B/P (MAP) Pulse Ox O2 Delivery O2 Flow Rate FiO2 06/24/17 05:00 98.0 53 18 140/68 (92) 97 Intake and Output 06/24/17 06/24/17 06/25/17 08:00 16:00 00:00 Intake Total 600 ml 240 ml Balance 600 ml 240 ml Assessment & Plan Problem List: (1) Schizoaffective disorder, bipolar type ICD Codes: F25.0 - Schizoaffective disorder, bipolar type Assessment & Plan Continue current tx plan. Hydroxyzine prn for sleep. Estimated LOS: days Justification for Cont. Inpt. risk of decompensation Request HC Surrog/Guard Advoc?: Yes Veronique Stephens MD Jun 24, 2017 16:32
[2017-06-24 17:00] VITALS: BP 133/68; PULSE 57; RESP 16; TEMP 98.6; O2SAT 97
[2017-06-24] MEDS: LOSARTAN 50 MG TAB PO SCH (20:44)
[2017-06-24] MEDS: ACETAMINOPHEN 325 MG TAB PO PRN (20:46)
[2017-06-25] MEDS: TAMOXIFEN CITRATE 10 MG TAB PO SCH (08:55)
[2017-06-25] MEDS: CHOLECALCIFEROL (VIT D3) 1000 UNIT TAB PO SCH (08:55)
[2017-06-25] MEDS: METOPROLOL TARTRATE 50 MG TAB PO SCH ×2 (08:55→20:44)
[2017-06-25] MEDS: risperiDONE ODT 2 MG TAB PO SCH ×2 (08:55→20:43)
[2017-06-25] MEDS: MEMANTINE HCL 10 MG TAB PO SCH ×2 (08:55→20:42)
[2017-06-25] MEDS: predniSONE 10 MG TAB PO SCH ×2 (08:55→20:43)
[2017-06-25] MEDS: DIVALPROEX SODIUM DELAYED RELEASE 250 MG TAB PO SCH (08:55)
[2017-06-25] MEDS: ASPIRIN EC 81 MG TABEC PO SCH (08:56)
[2017-06-25] MEDS: ATORVASTATIN 10 MG TAB PO SCH (08:56)
[2017-06-25] MEDS: PANTOPRAZOLE SOD 20 MG DELAYED RELEASE TAB PO SCH (08:56)
--- NOTE | 2017-06-25 13:57 | HHI.PYPN ---
Subjective Remarks Patient seen in [place] with orders have, patient continues calm pleasant with me intense somewhat intrusive. Again asking if she can go home today. When I asked if she was willing to go to the [facility] where she was living before she adamantly refused saying quite loud that she wishes to go home. Patient compliant medications. Depakote level 24 on 06/20 and to 50 mg twice a day will increase the dose to 250 mg a.m. 500 mg at bedtime and recheck level in 3 days. Placement continues to be quite problematic Review of Systems Except as stated in HPI: all other systems reviewed are Neg Mental Status Examination Appearance: Appropriate Consciousness: Alert Orientation: Person, Place, Date/Time Motor Activity: Normal gait Speech: Hesitant Language: Adequate Fund of Knowledge: Adequate Attention and Concentration: Inadequate Memory: Impaired Mood: Appropriate, Other Affect: Appropriate Thought Process & Associations: Loose associations Thought Content: Delusional Hallucination Type: None Delusion Type: None, Paranoid Suicidal Ideation: No Suicidal Plan: No Suicidal Intention: No Homicidal Ideation: No Homicidal Plan: No Homicidal Intention: No Insight: Poor Judgment: Impulsive Results Vitals/IOs Vital Signs Date Time Temp Pulse Resp B/P (MAP) Pulse Ox O2 Delivery O2 Flow Rate FiO2 06/24/17 17:00 98.6 57 16 133/68 (89) 97 Intake and Output 06/25/17 06/25/17 06/26/17 08:00 16:00 00:00 Intake Total 240 ml Balance 240 ml Assessment & Plan Problem List: (1) Schizoaffective disorder, bipolar type ICD Codes: F25.0 - Schizoaffective disorder, bipolar type Assessment & Plan Estimated LOS: days patient remained psychotic delusional and quite resistant to any placement issues. See medication adjustment above Justification for Cont. Inpt. At this time patient will decompensate if placed in a lower level of care Discharge Planning Placement arrange quite problematic Request HC Surrog/Guard Advoc?: Yes Elmo Castañeda MD Jun 25, 2017 13:57
[2017-06-25 17:55] VITALS: BP 116/64; PULSE 55; RESP 16; TEMP 97.2; O2SAT 98
[2017-06-25] MEDS: hydrOXYzine HCL 50 MG TAB PO PRN (20:42)
[2017-06-25] MEDS: DIVALPROEX SODIUM E.R. 500 MG TAB PO SCH (20:43)
[2017-06-25] MEDS: LOSARTAN 50 MG TAB PO SCH (20:44)
[2017-06-26 06:00] VITALS: BP 151/70; PULSE 60; RESP 18; TEMP 98.5; O2SAT 96
[2017-06-26] MEDS: TAMOXIFEN CITRATE 10 MG TAB PO SCH (08:27)
[2017-06-26] MEDS: predniSONE 10 MG TAB PO SCH ×2 (08:28→20:03)
[2017-06-26] MEDS: DIVALPROEX SODIUM DELAYED RELEASE 250 MG TAB PO SCH (08:28)
[2017-06-26] MEDS: METOPROLOL TARTRATE 50 MG TAB PO SCH ×2 (08:28→20:03)
[2017-06-26] MEDS: MEMANTINE HCL 10 MG TAB PO SCH ×2 (08:28→20:02)
[2017-06-26] MEDS: PANTOPRAZOLE SOD 20 MG DELAYED RELEASE TAB PO SCH (08:28)
[2017-06-26] MEDS: ATORVASTATIN 10 MG TAB PO SCH (08:28)
[2017-06-26] MEDS: ASPIRIN EC 81 MG TABEC PO SCH (08:28)
[2017-06-26] MEDS: CHOLECALCIFEROL (VIT D3) 1000 UNIT TAB PO SCH (08:29)
[2017-06-26] MEDS: risperiDONE ODT 2 MG TAB PO SCH ×2 (08:29→20:03)
--- NOTE | 2017-06-26 12:47 | HHI.PYPN ---
Subjective Remarks Patient seen today in day room with nurse Mamadou. Chart reviewed. Patient compliant medications. It appears is been a bed placement available for this lady tomorrow at [facility]. We discussed with the patient the discharge tomorrow. Patient initially showed resistance to any placement except with her son at home. Then she became somewhat angry with her son. Now she agrees to a trial in the [facility]. We'll consider discharge tomorrow to that [facility] of follow-up services through that [facility] Review of Systems Except as stated in HPI: all other systems reviewed are Neg Mental Status Examination Appearance: Appropriate Consciousness: Alert Orientation: Person, Place, Date/Time Motor Activity: Normal gait Speech: Hesitant Language: Adequate Fund of Knowledge: Adequate Attention and Concentration: Inadequate Memory: Impaired Mood: Appropriate, Other Affect: Appropriate Thought Process & Associations: Loose associations Thought Content: Delusional Hallucination Type: None Delusion Type: None, Paranoid Suicidal Ideation: No Suicidal Plan: No Suicidal Intention: No Homicidal Ideation: No Homicidal Plan: No Homicidal Intention: No Insight: Poor Judgment: Impulsive Results Vitals/IOs Vital Signs Date Time Temp Pulse Resp B/P (MAP) Pulse Ox O2 Delivery O2 Flow Rate FiO2 06/26/17 06:00 98.5 60 18 151/70 (97) 96 Assessment & Plan Problem List: (1) Schizoaffective disorder, bipolar type ICD Codes: F25.0 - Schizoaffective disorder, bipolar type Assessment & Plan Estimated LOS: days patient able to process discharge plans for tomorrow to the [facility]. Justification for Cont. Inpt. Patient to be discharged tomorrow to [facility] Discharge Planning Patient to be discharged tomorrow to [facility] Request HC Surrog/Guard Advoc?: Yes Elmo Castañeda MD Jun 26, 2017 12:47
[2017-06-26 18:35] VITALS: BP 127/65; PULSE 64; RESP 18; TEMP 98.4; O2SAT 98
[2017-06-26] MEDS: DIVALPROEX SODIUM E.R. 500 MG TAB PO SCH (20:02)
[2017-06-26] MEDS: LOSARTAN 50 MG TAB PO SCH (20:02)
[2017-06-26] MEDS: hydrOXYzine HCL 50 MG TAB PO PRN (20:03)
[2017-06-26] MEDS: ACETAMINOPHEN/HYDROcodone 325 MG/5 MG TAB PO PRN (22:15)
[2017-06-27] MEDS: hydrOXYzine HCL 50 MG TAB PO PRN (01:11)
[2017-06-27 05:52] VITALS: BP 130/71; PULSE 52; RESP 17; TEMP 98.3; O2SAT 99
[2017-06-27] MEDS: ATORVASTATIN 10 MG TAB PO SCH (08:01)
[2017-06-27] MEDS: ASPIRIN EC 81 MG TABEC PO SCH (08:02)
[2017-06-27] MEDS: predniSONE 10 MG TAB PO SCH (08:02)
[2017-06-27] MEDS: METOPROLOL TARTRATE 50 MG TAB PO SCH (08:02)
[2017-06-27] MEDS: PANTOPRAZOLE SOD 20 MG DELAYED RELEASE TAB PO SCH (08:02)
[2017-06-27] MEDS: TAMOXIFEN CITRATE 10 MG TAB PO SCH (08:02)
[2017-06-27] MEDS: CHOLECALCIFEROL (VIT D3) 1000 UNIT TAB PO SCH (08:02)
[2017-06-27] MEDS: risperiDONE ODT 2 MG TAB PO SCH (08:02)
[2017-06-27] MEDS: DIVALPROEX SODIUM DELAYED RELEASE 250 MG TAB PO SCH (08:02)
[2017-06-27] MEDS: MEMANTINE HCL 10 MG TAB PO SCH (08:04)
[2017-06-27] MEDS ORDERED: COZA50TA PO (10:17)
[2017-06-27] MEDS ORDERED: METO-309 PO (10:17)
[2017-06-27] MEDS ORDERED: PRED10 PO (10:17)
[2017-06-27] MEDS ORDERED: AMLO10 PO (10:17)
[2017-06-27] MEDS ORDERED: HYDR-3516 PO (10:17)
[2017-06-27] MEDS ORDERED: DIVA250T PO (10:17)
[2017-06-27] MEDS ORDERED: DEPA500T3 PO (10:17)
[2017-06-27] MEDS ORDERED: RISPM2 PO (10:17)
[2017-06-27] MEDS ORDERED: PANT20 PO (10:17)
[2017-06-27] MEDS ORDERED: LIPI10TA PO (10:17)
[2017-06-27] MEDS ORDERED: TAMO10TA6 PO (10:17)
[2017-06-27] MEDS ORDERED: ASPI81TA23 PO (10:17)
[2017-06-27] MEDS ORDERED: NAME10TA PO (10:17)
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
== END 2017-06-27 10:30 | DRG 885 ==
LOC: NEPD 17:59 → NEDA 06-14 13:36 → H250 06-14 15:11
PROVIDERS: ADMIT Psychiatry & Neurology Psychiatry; ATTEND Psychiatry & Neurology Psychiatry
DX: F25.0 Schizoaffective disorder, bipolar type (principal); F03.91 Unspecified dementia, unspecified severity, with behavioral disturbance; F23 Brief psychotic disorder; I10 Essential (primary) hypertension; K21.9 Gastro-esophageal reflux disease without esophagitis; R45.6 Violent behavior; E78.5 Hyperlipidemia, unspecified; E55.9 Vitamin D deficiency, unspecified; Z85.3 Personal history of malignant neoplasm of breast
CPT/HCPCS: 71045; 80053; 80061; 80164; 80307; 81001; 82306; 82607; 83036; 84443; 85025; 99285; J7512